=== PATIENT | male | born 1970 | race African-American/Black ===

== ENCOUNTER 2016-04-15 19:15 | Inpatient (IN) | payer OTHER, MEDICAID ==
[~2016-04-15] VITALS: Ht 190.5 cm; Wt 92.5 kg
[2016-04-15 19:15] VITALS: O2SAT 97
[~2016-04-15 19:15] MED LIST: CARB200 PO; CARB200T16 PO; CITA20 PO; CITA40 PO; FENO1TAB76 PO; HALO10 PO; HALO5 PO; HYDRO25 PO; OMEP20TA39 PO; QUET200 PO; SERO200T2 PO; TRIH5 PO; VIST25CA PO
[2016-04-15] MEDS ORDERED: ONDANSETRON HCL 4 MG/2 ML VIAL ONE (19:29)
[2016-04-15] MEDS ORDERED: ceFAZolin 2 GM PREMIX 50 ML ONE (19:29)
[2016-04-15] MEDS ORDERED: DIPHTH/TETANUS/ACEL PERTUSSIS (BOOSTER) 0.5 ML VIAL/PFS IM ONE (19:47)
[2016-04-15] MEDS ORDERED: ceFAZolin 2 GM PREMIX 50 ML IV STA (19:47)
[2016-04-15 19:53] LABS: I-STAT POTASSIUM 3.6 MMOL/L (3.5-4.9)
[2016-04-15 19:54] LABS: BASOPHIL # 0.1 TH/MM3 (0-0.2); EOSINOPHIL # 0.3 TH/MM3 (0-0.4); HEMATOCRIT 42.4 % (39.0-51.0); HEMO FLAGS DIFF FINAL; LYMPH % 51.5 % (9.0-44.0); LYMPHOCYTE # 2.9 TH/MM3 (1.0-4.8); MEAN CELL VOLUME 85.7 FL (80.0-100.0); MONO % 6.7 % (0.0-8.0); NEUT % 35.8 % (16.0-70.0); PLATELET COUNT 170 TH/MM3 (150-450); RED BLOOD COUNT 4.95 MIL/MM3 (4.50-5.90); RED CELL DISTRIBUTION WIDTH 13.6 % (11.6-17.2); WHITE BLOOD COUNT 5.6 TH/MM3 (4.0-11.0)
[2016-04-15] MEDS ORDERED: SODIUM CHLOR 0.9% 1000 ML INJ 1,000 ML IV ONE (20:00)
[2016-04-15 20:05] LABS: PROTHROMBIN TIME - PATIENT 10.8 SEC (9.8-11.6)
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
[2016-04-15 20:10] VITALS: BP 128/62; PULSE 96; RESP 20; TEMP 97.5; O2SAT 96
[2016-04-15] MEDS ORDERED: IOHEXOL 350 MG/ML 10 ML VIAL (for RAD DIAG) IV ONE (20:10)
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
[2016-04-15 20:48] VITALS: BP 141/92; PULSE 72; RESP 18; O2SAT 96
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
[2016-04-15 22:00] VITALS: BP 131/79; PULSE 75; RESP 18; O2SAT 96
[2016-04-15 23:00] VITALS: BP 119/72; PULSE 78; RESP 18; O2SAT 100
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
[2016-04-15] MEDS ORDERED: ONDANSETRON HCL 4 MG/2 ML VIAL IV PRN (23:45)
[2016-04-15] MEDS ORDERED: ACETAMINOPHEN/HYDROcodone 325 MG/5 MG TAB PO PRN (23:45)
[2016-04-15] MEDS ORDERED: MAGNESIUM HYDROXIDE SUSP 30 ML CUP PO PRN (23:45)
[2016-04-15] MEDS ORDERED: CHLORHEXIDINE GLUCONATE 2 % 1 PACK (2 CLOTHS) TOP PRN (23:45)
[2016-04-15] MEDS ORDERED: SODIUM CHLORIDE 0.9% FLUSH 5 ML FLUSH IVF PRN (23:45)
[2016-04-15] MEDS ORDERED: MISCELLANEOUS NURSING INFORMATION XX SCH (23:45)
[2016-04-16] VITALS: BP 119/70; PULSE 77; RESP 18; O2SAT 100
[2016-04-16 01:00] VITALS: BP 119/70; PULSE 80; RESP 18; O2SAT 95
[2016-04-16] MEDS: LACTATED RINGER'S 1000 ML INJ 1,000 ML IV SCH ×2 (02:00→13:14)
[2016-04-16 02:04] VITALS: BP 117/67; PULSE 80; RESP 18; O2SAT 96
[2016-04-16 03:00] VITALS: BP 140/83; PULSE 81; RESP 20; TEMP 96.5; O2SAT 96
[2016-04-16] MEDS ORDERED: CHLORHEXIDINE GLUCONATE 2 % 1 PACK (2 CLOTHS) TOP SCH (04:00)
[2016-04-16] MEDS ORDERED: MILKSUS PO (07:06)
[2016-04-16] MEDS ORDERED: DOCU1CAP39 PO (07:06)
[2016-04-16 08:03] LABS: AUTOMATED NEUTROPHIL # 5.7 TH/MM3 (1.8-7.7); BASOPHIL % 0.6 % (0.0-2.0); EOSINOPHIL # 0.2 TH/MM3 (0-0.4); EOSINOPHIL % 2.4 % (0.0-4.0); HEMATOCRIT 44.1 % (39.0-51.0); HEMO FLAGS DIFF FINAL; LYMPHOCYTE # 1.3 TH/MM3 (1.0-4.8); MEAN CELL VOLUME 86.7 FL (80.0-100.0); MEAN CORPUSCULAR HEMOGLOBIN 29.7 PG (27.0-34.0); MEAN CORPUSCULAR HGB CONC 34.3 % (32.0-36.0); MONO % 7.8 % (0.0-8.0); NEUT % 73.2 % (16.0-70.0); PLATELET COUNT 194 TH/MM3 (150-450); RED BLOOD COUNT 5.09 MIL/MM3 (4.50-5.90); RED CELL DISTRIBUTION WIDTH 13.5 % (11.6-17.2); WHITE BLOOD COUNT 7.8 TH/MM3 (4.0-11.0)
[2016-04-16] MEDS: ACETAMINOPHEN/HYDROcodone 325 MG/5 MG TAB PO PRN ×2 (08:19→13:13)
[2016-04-16 08:31] LABS: BICARBONATE 26.6 MEQ/L (21.0-32.0); POTASSIUM 3.8 MEQ/L (3.5-5.1)
[2016-04-16 08:40] VITALS: BP 133/75; PULSE 88; RESP 20; TEMP 98.1; O2SAT 95
[2016-04-16] MEDS ORDERED: DOCUSATE SODIUM 100 MG CAP PO SCH (09:00)
[2016-04-16] MEDS ORDERED: MULTIVITAMIN TAB PO SCH (09:00)
[2016-04-16] MEDS ORDERED: FOLIC ACID 1 MG TAB PO SCH (09:00)
[2016-04-16] MEDS ORDERED: THIAMINE HCL 100 MG TAB PO SCH (09:00)
[2016-04-16 12:00] VITALS: BP 123/76; PULSE 99; RESP 21; TEMP 98.8; O2SAT 99
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
[2016-04-16] MEDS ORDERED: NORC5TAB PO (14:51)
== END 2016-04-16 16:26 | disposition home or self-care (01) | DRG 87 ==
LOC: NEPI 19:15 → EDBD 19:43 → NEDA 19:43 → MERGE 19:43 → N05B 04-16 02:50
PROVIDERS: ADMIT Surgery; ATTEND Surgery
DX: S02.0XXA Fracture of vault of skull, initial encounter for closed fracture (principal); F32.9 Major depressive disorder, single episode, unspecified; F14.129 Cocaine abuse with intoxication, unspecified; S06.0X9A Concussion with loss of consciousness of unspecified duration, initial encounter; S90.511A Abrasion, right ankle, initial encounter; S40.211A Abrasion of right shoulder, initial encounter; G40.909 Epilepsy, unspecified, not intractable, without status epilepticus; R40.2411 Glasgow coma scale score 13-15, in the field [EMT or ambulance]; F10.129 Alcohol abuse with intoxication, unspecified; Y90.6 Blood alcohol level of 120-199 mg/100 ml; F17.210 Nicotine dependence, cigarettes, uncomplicated; M54.2 Cervicalgia; M54.5 Low back pain; R10.2 Pelvic and perineal pain; V09.20XA Pedestrian injured in traffic accident involving unspecified motor vehicles, initial encounter
CPT/HCPCS: 70450; 70486; 71010; 71260; 72125; 72170; 73120; 73610; 74177; 80048; 80320; 82435; 82565; 82947; 84132; 84295; 84520; 85025; 85610; 85730; 86850; 86900; 86901; 90471; 90715; 94150; 96374; 99291; G0390; J0690; J2405; J7030; J7120; Q9967

== ENCOUNTER 2016-07-11 18:32 | Inpatient (IN) | payer MEDICAID, OTHER ==
[~2016-07-11] VITALS: Ht 190.5 cm; Wt 95.3 kg
[~2016-07-11 18:32] MED LIST changes: +DOCU1CAP39 PO; +MILKSUS PO; +NORC5TAB PO
[2016-07-11 19:18] VITALS: BP 112/68; PULSE 97; RESP 16; TEMP 98.5; O2SAT 100
[2016-07-11 19:45] VITALS: BP 108/70; PULSE 88; RESP 17; O2SAT 100
[2016-07-11 20:01] VITALS: BP 108/70; PULSE 88; RESP 17; O2SAT 100
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
[2016-07-11 20:43] LABS: AUTOMATED NEUTROPHIL # 2.2 TH/MM3 (1.8-7.7); BASOPHIL % 0.8 % (0.0-2.0); EOSINOPHIL # 0.3 TH/MM3 (0-0.4); EOSINOPHIL % 5.8 % (0.0-4.0); HEMATOCRIT 43.4 % (39.0-51.0); HEMO FLAGS DIFF FINAL; LYMPH % 47.5 % (9.0-44.0); LYMPHOCYTE # 2.7 TH/MM3 (1.0-4.8); MEAN CELL VOLUME 86.2 FL (80.0-100.0); MEAN CORPUSCULAR HEMOGLOBIN 29.3 PG (27.0-34.0); MONO % 6.1 % (0.0-8.0); NEUT % 39.8 % (16.0-70.0); PLATELET COUNT 196 TH/MM3 (150-450); RED BLOOD COUNT 5.04 MIL/MM3 (4.50-5.90); RED CELL DISTRIBUTION WIDTH 13.1 % (11.6-17.2); WHITE BLOOD COUNT 5.6 TH/MM3 (4.0-11.0)
[2016-07-11 21:22] LABS: ACETAMINOPHEN LESS THAN 2.0 MCG/ML (10.0-30.0); ALKALINE PHOSPHATASE 74 U/L (45-117); ALT (GPT) 27 U/L (12-78); ANION GAP 10 MEQ/L (5-15); AST (GOT) 24 U/L (15-37); BICARBONATE 24.1 MEQ/L (21.0-32.0); BLOOD UREA NITROGEN 13 MG/DL (7-18); CHLORIDE 106 MEQ/L (98-107); GLOMERULAR FILTRATION RATE 78 ML/MIN (>89); POTASSIUM 3.6 MEQ/L (3.5-5.1); SODIUM (NA) 140 MEQ/L (136-145); TOTAL BILIRUBIN ADULT 0.3 MG/DL (0.2-1.0)
[2016-07-11 22:00] VITALS: BP 140/68; PULSE 82; RESP 18; O2SAT 99
[2016-07-12 00:03] LABS: AMPHETAMINE, URINE NEG (NEG); BARBITURATES, URINE NEG (NEG); COCAINE, URINE POS (NEG)
[2016-07-12 02:04] VITALS: BP 125/63; PULSE 65; RESP 19; O2SAT 95
[2016-07-12 06:00] VITALS: BP 114/60; PULSE 71; RESP 18; O2SAT 99
[2016-07-12 10:48] VITALS: BP 109/68; PULSE 80; RESP 17; O2SAT 96
[2016-07-12 12:31] VITALS: BP 114/60; PULSE 71; RESP 18; TEMP 97.9; O2SAT 98
[2016-07-12] MEDS: HALOPERIDOL 5 MG TAB PO SCH ×2 (13:30→21:03)
[2016-07-12] MEDS: TRIHEXYPHENIDYL HCL 5 MG TAB PO SCH ×2 (14:00→21:03)
[2016-07-12] MEDS: PANTOPRAZOLE SOD 40 MG DELAYED RELEASE TAB PO SCH (14:00)
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
[2016-07-12] MEDS ORDERED: ACETAMINOPHEN 325 MG TAB PO PRN (15:00)
[2016-07-12] MEDS ORDERED: MAGNESIUM HYDROXIDE SUSP 30 ML CUP PO PRN (15:00)
[2016-07-12] MEDS: CITALOPRAM HYDROBROMIDE 40 MG TAB PO SCH (15:00)
[2016-07-12] MEDS: FENOFIBRATE 48 MG TAB PO SCH (15:00)
[2016-07-12] MEDS ORDERED: ALUMINUM/MAGNESIUM/SIMETH 30 ML CUP PO PRN (15:00)
[2016-07-12 15:34] VITALS: BP 114/67; TEMP 98
[2016-07-12 17:28] VITALS: BP 99/74; PULSE 79; RESP 18; TEMP 97.8; O2SAT 100
[2016-07-13 06:37] VITALS: BP 116/67; PULSE 66; RESP 18; TEMP 97.9; O2SAT 100
[2016-07-13] MEDS: CITALOPRAM HYDROBROMIDE 40 MG TAB PO SCH (09:00)
[2016-07-13] MEDS: HALOPERIDOL 5 MG TAB PO SCH (09:00)
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
[2016-07-13] MEDS: TRIHEXYPHENIDYL HCL 5 MG TAB PO SCH ×2 (09:12→21:05)
[2016-07-13] MEDS: PANTOPRAZOLE SOD 40 MG DELAYED RELEASE TAB PO SCH (09:12)
[2016-07-13] MEDS: FENOFIBRATE 48 MG TAB PO SCH (09:12)
[2016-07-13] MEDS ORDERED: PILL SPLITTER OTHER PRN (09:30)
[2016-07-13] MEDS ORDERED: ALBUTEROL SULFATE 90 MCG/ACT HFA 18 GM INHALER INH PRN (10:00)
[2016-07-13 10:15] LABS: ANION GAP 8 MEQ/L (5-15); BICARBONATE 24.1 MEQ/L (21.0-32.0); BLOOD UREA NITROGEN 13 MG/DL (7-18); CHLORIDE 106 MEQ/L (98-107); GLOMERULAR FILTRATION RATE 79 ML/MIN (>89); HDL CHOLESTEROL 46.7 MG/DL (40.0-60.0); LDL CHOLESTEROL 139 MG/DL (0-99); POTASSIUM 3.7 MEQ/L (3.5-5.1); SODIUM (NA) 138 MEQ/L (136-145)
[2016-07-13] MEDS ORDERED: LORazepam 2 MG TAB PO PRN (10:15)
[2016-07-13] MEDS ORDERED: LORazepam 1 MG TAB PO PRN (10:15)
[2016-07-13] MEDS ORDERED: LORazepam 2 MG/ML VIAL IV PUSH PRN ×4 (10:15)
[2016-07-13] MEDS ORDERED: BENZTROPINE MESYLATE 2 MG/2 ML VIAL IM PRN (11:00)
[2016-07-13] MEDS ORDERED: FLUMAZENIL 0.5 MG/5 ML VIAL IV PUSH PRN (11:00)
[2016-07-13] MEDS ORDERED: BENZTROPINE MESYLATE 1 MG TAB PO PRN (11:00)
[2016-07-13 12:09] LABS: HEMOGLOBIN A1b 1.4 %; HEMOGLOBIN Ao 86.6 %; HEMOGLOBIN P3 3.3 %
[2016-07-13] MEDS: QUEtiapine FUMARATE 100 MG TAB PO SCH (12:13)
[2016-07-13 18:13] VITALS: BP 133/65; PULSE 92; RESP 18; TEMP 98.1; O2SAT 97
[2016-07-13] MEDS: carBAMazepine 200 MG TAB PO SCH (21:00)
[2016-07-13] MEDS: QUEtiapine FUMARATE 200 MG TAB PO SCH (21:05)
[2016-07-14 06:03] VITALS: BP 113/72; PULSE 98; RESP 18; TEMP 97.8; O2SAT 98
[2016-07-14] MEDS: QUEtiapine FUMARATE 200 MG TAB PO SCH ×2 (08:00→22:03)
[2016-07-14] MEDS: carBAMazepine 200 MG TAB PO SCH ×2 (08:00→22:03)
[2016-07-14] MEDS: THIAMINE HCL 100 MG TAB PO SCH (08:00)
[2016-07-14] MEDS: FOLIC ACID 1 MG TAB PO SCH (08:00)
[2016-07-14] MEDS: TRIHEXYPHENIDYL HCL 5 MG TAB PO SCH ×2 (08:01→22:02)
[2016-07-14] MEDS: PANTOPRAZOLE SOD 40 MG DELAYED RELEASE TAB PO SCH (08:02)
[2016-07-14] MEDS: FENOFIBRATE 48 MG TAB PO SCH (08:02)
[2016-07-14] MEDS: QUEtiapine FUMARATE 100 MG TAB PO SCH (11:52)
--- NOTE | 2016-07-14 14:28 | HHI.PYPN ---
Subjective Remarks Patient was seen and case discussed with nursing. Patient is behaving well on the unit. Endorses suicidal ideation before admission but denies it today. Says that he was upset because he did not like the surroundings and is placement. Is alert and oriented 3. Compliant with his medications. Denies psychotic symptoms. Behaving well per nursing Objective Alert: Yes [place]: Person (ox4), Place, Date Mood: Depressed Affect: Blunted Memory Intact: Comment (not impaired) Hallucinations: Auditory (denies today) Delusions: No Delusion Type: Other (none elicited) Suicidal: Ideation (denies today) Homicidal: Ideation (no specific plan) Insight/Judgment Poor Vitals/IOs Vital Signs Date Time Temp Pulse Resp B/P Pulse Ox O2 Delivery O2 Flow Rate FiO2 07/14/16 06:03 97.8 98 18 113/72 98 07/12/16 06:00 Room Air Assessment & Plan Problem List: (1) Schizoaffective disorder ICD Code: F25.9 (2) Cocaine abuse ICD Code: F14.10 Assessment & Plan Continue current treatment plan Justification for Cont. Inpt. Patient will decompensate in a less restrictive setting Request HC Surrog/Guard Advoc?: No Problem Qualifiers (1) Schizoaffective disorder: Qualified Code: F25.0 - Schizoaffective disorder, bipolar type Jona Lyn DO July 14, 2016 14:28
[2016-07-14 14:53] VITALS: BP 104/63; PULSE 91; RESP 19; TEMP 98.2; O2SAT 100
[2016-07-14] MEDS: hydrOXYzine HCL 50 MG TAB PO PRN (18:26)
[2016-07-14] MEDS: diphenhydrAMINE HCL 50 MG CAP PO PRN (22:02)
[2016-07-15 05:50] VITALS: BP 117/74; PULSE 94; RESP 16; TEMP 98.1; O2SAT 97
[2016-07-15] MEDS: TRIHEXYPHENIDYL HCL 5 MG TAB PO SCH ×2 (08:00→20:38)
[2016-07-15] MEDS: THIAMINE HCL 100 MG TAB PO SCH (08:00)
[2016-07-15] MEDS: FOLIC ACID 1 MG TAB PO SCH (08:00)
[2016-07-15] MEDS: QUEtiapine FUMARATE 200 MG TAB PO SCH ×2 (08:01→20:38)
[2016-07-15] MEDS: carBAMazepine 200 MG TAB PO SCH ×2 (08:01→20:38)
[2016-07-15] MEDS: PANTOPRAZOLE SOD 40 MG DELAYED RELEASE TAB PO SCH (08:48)
[2016-07-15] MEDS: FENOFIBRATE 48 MG TAB PO SCH (09:00)
--- NOTE | 2016-07-15 11:51 | HHI.PYPN ---
Subjective Remarks Patient was seen and case discussed with nursing. Patient is more engageable and has a brighter affect. His complaints of hallucinations and suicidal ideation are very vague and superficial. His compliant with his medications and behaving well on the unit. Objective Alert: Yes [place]: Person (ox4), Place, Date Mood: Calm Affect: Restricted Memory Intact: Comment (not impaired) Hallucinations: Auditory (of crowds) Delusions: No Delusion Type: Other (none elicited) Suicidal: Ideation ("here and there.") Homicidal: Ideation (no specific plan) Insight/Judgment Poor Vitals/IOs Vital Signs Date Time Temp Pulse Resp B/P Pulse Ox O2 Delivery O2 Flow Rate FiO2 07/15/16 05:50 98.1 94 16 117/74 97 07/12/16 06:00 Room Air Assessment & Plan Problem List: (1) Schizoaffective disorder ICD Code: F25.9 (2) Cocaine abuse ICD Code: F14.10 Assessment & Plan Continue current treatment plan Justification for Cont. Inpt. Patient will decompensate in a less restrictive setting Request HC Surrog/Guard Advoc?: No Problem Qualifiers (1) Schizoaffective disorder: Qualified Code: F25.0 - Schizoaffective disorder, bipolar type Jona Lyn DO July 15, 2016 11:51
[2016-07-15] MEDS: QUEtiapine FUMARATE 100 MG TAB PO SCH (12:00)
[2016-07-15 18:15] VITALS: BP 129/57; PULSE 89; RESP 18; TEMP 98.6; O2SAT 95
[2016-07-16 06:10] VITALS: BP 124/59; PULSE 88; RESP 16; TEMP 97.1; O2SAT 98
[2016-07-16] MEDS: QUEtiapine FUMARATE 200 MG TAB PO SCH (08:47)
[2016-07-16] MEDS: FOLIC ACID 1 MG TAB PO SCH (08:47)
[2016-07-16] MEDS: THIAMINE HCL 100 MG TAB PO SCH (08:48)
[2016-07-16] MEDS: PANTOPRAZOLE SOD 40 MG DELAYED RELEASE TAB PO SCH (08:48)
[2016-07-16] MEDS: carBAMazepine 200 MG TAB PO SCH ×2 (08:48→22:13)
[2016-07-16] MEDS: TRIHEXYPHENIDYL HCL 5 MG TAB PO SCH ×2 (08:48→22:13)
[2016-07-16] MEDS: FENOFIBRATE 48 MG TAB PO SCH (08:53)
--- NOTE | 2016-07-16 10:24 | HHI.PYPN ---
Subjective Remarks Patient seen and examined with counselor and nurse. Chart reviewed. Case discussed with nursing staff who reports patient still complains of low mood and suicidal ideation "off and on." He has been no behavioral problem per nursing staff. On my examination today, the patient continues to endorse depressive symptoms feeling like "I can't make it in life." He endorses feeling useless. He does admit to some intermittent suicidal ideation still. He feels like his current psychotropic medication regimen is helping but he finds it somewhat overly sedating during the day. We discuss adjusting his Seroquel dosing to place the bulk of the dose at night. He denies side effects from medications otherwise. He remains receptive to independent living placement such as at [facility]. Review of Systems Except as stated in HPI: all other systems reviewed are Neg Objective Alert: Yes [place]: Person, Place, Date Mood: Depressed Affect: Blunted Memory Intact: Comment (intact) Hallucinations: Other (no AVH) Delusions: No Delusion Type: Other (no delusions) Suicidal: Ideation (intermittent) Homicidal: Ideation (no homicidal ideation) Insight/Judgment Fair Remarks No motor abnormalities. Thought processes linear. Grooming and hygiene good. Labs Test 07/16/16 07:31 Carbamazepine (Tegretol) Level 6.4 MCG/ML Labs reviewed. Tegretol level within the therapeutic range. Vitals/IOs Vital Signs Date Time Temp Pulse Resp B/P Pulse Ox O2 Delivery O2 Flow Rate FiO2 07/16/16 06:10 97.1 88 16 124/59 98 Assessment & Plan Problem List: (1) Schizoaffective disorder ICD Code: F25.9 (2) Cocaine abuse ICD Code: F14.10 Assessment & Plan Adjust Seroquel dosing to 200/100/600mg to lessen daytime sedation. Titrate CBZ to 200mg BID for additional mood stabilization. Plan to check a level later this week. Continue to monitor on inpatient unit. Continue other medications and care as ordered. Justification for Cont. Inpt. Monitoring for impairment in safety. Medication changes in process. High risk for decompensation in a less restrictive environment pending psychiatric stabilization. Discharge Planning Pending psychiatric stabilization. Possible discharge to [facility] later this week. Request HC Surrog/Guard Advoc?: No Problem Qualifiers (1) Schizoaffective disorder: Qualified Code: F25.0 - Schizoaffective disorder, bipolar type Stephan Dewitt MD July 16, 2016 10:24
[2016-07-16] MEDS: hydrOXYzine HCL 50 MG TAB PO PRN (10:55)
[2016-07-16] MEDS: QUEtiapine FUMARATE 100 MG TAB PO SCH (12:43)
[2016-07-16 17:45] VITALS: BP 133/56; PULSE 88; RESP 16; TEMP 98.1; O2SAT 99
[2016-07-16] MEDS: QUEtiapine FUMARATE 300 MG TAB PO SCH (22:13)
[2016-07-16] MEDS: diphenhydrAMINE HCL 50 MG CAP PO PRN (22:14)
[2016-07-17 05:56] VITALS: BP 118/70; PULSE 107; RESP 18; TEMP 97.9; O2SAT 97
[2016-07-17] MEDS: THIAMINE HCL 100 MG TAB PO SCH (09:40)
[2016-07-17] MEDS: carBAMazepine 200 MG TAB PO SCH ×2 (09:40→21:03)
[2016-07-17] MEDS: FENOFIBRATE 48 MG TAB PO SCH (09:40)
[2016-07-17] MEDS: FOLIC ACID 1 MG TAB PO SCH (09:40)
[2016-07-17] MEDS: TRIHEXYPHENIDYL HCL 5 MG TAB PO SCH ×2 (09:40→21:03)
[2016-07-17] MEDS: QUEtiapine FUMARATE 200 MG TAB PO SCH (09:40)
[2016-07-17] MEDS: PANTOPRAZOLE SOD 40 MG DELAYED RELEASE TAB PO SCH (09:40)
--- NOTE | 2016-07-17 09:59 | HHI.PYPN ---
Subjective Remarks Patient seen and examined with counselor and nurse. Chart reviewed. Case discussed with nurse, counselor and rec therapist in treatment team. Per nurse , patient has been no behavioral problem; he is noted to be somewhat seclusive to room. For me today, patient says he is feeling "down and depressed." No SI. Complains of somewhat of AH of a "crowd," no specific voices. Not interested in an [facility] "because they take all your money." He does perk up when he learns that representatives from [facility] will be out to see him today. No side effects from meds. Review of Systems Except as stated in HPI: all other systems reviewed are Neg Objective Alert: Yes [place]: Person, Place, Date Mood: Depressed Affect: Blunted Memory Intact: Comment (Remains intact) Hallucinations: Other (no AVH) Delusions: No Delusion Type: Other (No delusions) Suicidal: Ideation (No SI) Homicidal: Ideation (No HI) Insight/Judgment Fair Remarks No abnormal motor movements noted. TP linear. Speech wnl for rate, tone, volume. Grooming and hygiene fair. Labs Labs reviewed. Vitals/IOs Vital Signs Date Time Temp Pulse Resp B/P Pulse Ox O2 Delivery O2 Flow Rate FiO2 07/17/16 05:56 97.9 107 18 118/70 97 Assessment & Plan Problem List: (1) Schizoaffective disorder ICD Code: F25.9 (2) Cocaine abuse ICD Code: F14.10 Assessment & Plan Continue Seroquel and CBZ as ordered. Plan to check a Tegretol level later this week. Continue to monitor on the inpatient unit. Continue other medications and care as ordered. Justification for Cont. Inpt. High risk for decompensation in less restrictive environment. Discharge planning. Discharge Planning [facility] to evaluate pt today. Request HC Surrog/Guard Advoc?: No Problem Qualifiers (1) Schizoaffective disorder: Qualified Code: F25.0 - Schizoaffective disorder, bipolar type Stephan Dewitt MD July 17, 2016 09:59
[2016-07-17] MEDS: QUEtiapine FUMARATE 100 MG TAB PO SCH (12:19)
[2016-07-17 18:35] VITALS: BP 130/65; PULSE 111; RESP 18; TEMP 98.4; O2SAT 98
[2016-07-17] MEDS: QUEtiapine FUMARATE 300 MG TAB PO SCH (21:03)
[2016-07-18] MEDS: hydrOXYzine HCL 50 MG TAB PO PRN (05:28)
[2016-07-18 06:12] VITALS: BP 123/61; PULSE 100; RESP 16; TEMP 97.8; O2SAT 97
[2016-07-18] MEDS: QUEtiapine FUMARATE 200 MG TAB PO SCH (09:00)
[2016-07-18] MEDS: carBAMazepine 200 MG TAB PO SCH (09:02)
[2016-07-18] MEDS: FOLIC ACID 1 MG TAB PO SCH (09:02)
[2016-07-18] MEDS: FENOFIBRATE 48 MG TAB PO SCH (09:02)
[2016-07-18] MEDS: THIAMINE HCL 100 MG TAB PO SCH (09:02)
[2016-07-18] MEDS: TRIHEXYPHENIDYL HCL 5 MG TAB PO SCH (09:03)
[2016-07-18] MEDS: PANTOPRAZOLE SOD 40 MG DELAYED RELEASE TAB PO SCH (09:03)
[2016-07-18] MEDS: QUEtiapine FUMARATE 100 MG TAB PO SCH (12:16)
--- NOTE | 2016-07-18 14:02 | HHI.PYPN ---
Objective Alert: Yes [place]: Person, Place, Date Mood: Depressed Affect: Blunted Memory Intact: Comment (Remains intact) Hallucinations: Other (no AVH) Delusions: No Delusion Type: Other (No delusions) Suicidal: Ideation (No SI) Homicidal: Ideation (No HI) Vitals/IOs Vital Signs Date Time Temp Pulse Resp B/P Pulse Ox O2 Delivery O2 Flow Rate FiO2 07/18/16 06:12 97.8 100 16 123/61 97 Assessment & Plan Problem List: (1) Schizoaffective disorder ICD Code: F25.9 (2) Cocaine abuse ICD Code: F14.10 Assessment & Plan Estimated LOS: days Request HC Surrog/Guard Advoc?: No Problem Qualifiers (1) Schizoaffective disorder: Qualified Code: F25.0 - Schizoaffective disorder, bipolar type Stephan Dewitt MD July 18, 2016 14:02
[2016-07-18] MEDS ORDERED: CARB200T PO (14:43)
[2016-07-18] MEDS ORDERED: QUET1TAB8 PO (14:43)
[2016-07-18] MEDS ORDERED: TRIH5TAB2 PO (14:43)
[2016-07-18] MEDS ORDERED: QUET1TAB10 PO (14:43)
[2016-07-18] MEDS ORDERED: QUET1TAB9 PO (14:43)
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
== END 2016-07-18 19:00 | disposition home or self-care (01) | DRG 885 ==
LOC: NEPJ 18:32 → NEDA 07-12 14:39 → H270 07-12 15:32
PROVIDERS: ADMIT Psychiatry & Neurology Psychiatry; ATTEND Psychiatry & Neurology Psychiatry
DX: F25.9 Schizoaffective disorder, unspecified (principal); F14.10 Cocaine abuse, uncomplicated; Z81.8 Family history of other mental and behavioral disorders; F17.210 Nicotine dependence, cigarettes, uncomplicated; Z88.0 Allergy status to penicillin
CPT/HCPCS: 80048; 80053; 80061; 80156; 80307; 83036; 85025; 99284; Q0163

== ENCOUNTER 2016-07-27 19:50 | Emergency (ER) | payer MEDICAID, OTHER ==
[~2016-07-27] VITALS: Ht 190.5 cm; Wt 92.0 kg
[~2016-07-27 19:50] MED LIST changes: -CARB200 PO; +CARB200T PO; -CARB200T16 PO; -CITA20 PO; -CITA40 PO; -DOCU1CAP39 PO; -HALO10 PO; -HALO5 PO; -HYDRO25 PO; -MILKSUS PO; -NORC5TAB PO; +QUET1TAB10 PO; +QUET1TAB8 PO; +QUET1TAB9 PO; -QUET200 PO; -SERO200T2 PO; -TRIH5 PO; +TRIH5TAB2 PO; -VIST25CA PO
[2016-07-27 20:01] VITALS: BP 168/82; PULSE 89; RESP 14; TEMP 98.1; O2SAT 99
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
[2016-07-27 20:35] LABS: AUTOMATED NEUTROPHIL # 3.9 TH/MM3 (1.8-7.7); BASOPHIL % 0.7 % (0.0-2.0); EOSINOPHIL # 0.2 TH/MM3 (0-0.4); EOSINOPHIL % 2.6 % (0.0-4.0); HEMATOCRIT 44.5 % (39.0-51.0); HEMO FLAGS DIFF FINAL; LYMPHOCYTE # 2.1 TH/MM3 (1.0-4.8); MEAN CELL VOLUME 86.2 FL (80.0-100.0); MEAN CORPUSCULAR HEMOGLOBIN 29.4 PG (27.0-34.0); MEAN CORPUSCULAR HGB CONC 34.2 % (32.0-36.0); MONO % 7.4 % (0.0-8.0); NEUT % 58.3 % (16.0-70.0); PLATELET COUNT 201 TH/MM3 (150-450); RED BLOOD COUNT 5.16 MIL/MM3 (4.50-5.90); WHITE BLOOD COUNT 6.6 TH/MM3 (4.0-11.0)
[2016-07-27 20:44] LABS: AMPHETAMINE, URINE NEG (NEG); BARBITURATES, URINE NEG (NEG); COCAINE, URINE POS (NEG)
[2016-07-27 21:03] LABS: ANION GAP 13 MEQ/L (5-15)
[2016-07-27 21:06] LABS: ALKALINE PHOSPHATASE 66 U/L (45-117); ALT (GPT) 30 U/L (12-78); AST (GOT) 19 U/L (15-37); BICARBONATE 22.1 MEQ/L (21.0-32.0); BLOOD UREA NITROGEN 14 MG/DL (7-18); CHLORIDE 105 MEQ/L (98-107); GLOMERULAR FILTRATION RATE 73 ML/MIN (>89); POTASSIUM 3.5 MEQ/L (3.5-5.1); SODIUM (NA) 140 MEQ/L (136-145); TOTAL BILIRUBIN ADULT 0.6 MG/DL (0.2-1.0)
[2016-07-27] MEDS ORDERED: TEGR200T PO (21:59)
[2016-07-27 22:10] VITALS: BP 122/66; PULSE 88; RESP 18; TEMP 97.6; O2SAT 97
[2016-07-27 22:56] VITALS: BP 112/57; PULSE 92; RESP 18; O2SAT 99
[2016-07-28 02:25] VITALS: BP 117/57; PULSE 60; RESP 18; O2SAT 97
[2016-07-28 06:09] VITALS: BP 114/69; PULSE 67; RESP 18; O2SAT 99
== END 2016-07-28 10:46 ==
LOC: NEDAMB 19:50 → NEPJ 07-28 10:46
DX: F25.9 Schizoaffective disorder, unspecified (principal); F14.10 Cocaine abuse, uncomplicated; R44.0 Auditory hallucinations; R44.1 Visual hallucinations; J45.909 Unspecified asthma, uncomplicated; Z72.0 Tobacco use
CPT/HCPCS: 80053; 80156; 80307; 85025; 99285

== ENCOUNTER 2017-09-13 06:42 | Inpatient (IN) ==
--- NOTE | 2017-09-13 07:17 | ED ---
HPI General Chief complaint: Psychiatric Symptoms Stated complaint: Medical Time Seen by Provider: 09/13/17 07:03 Source: patient Mode of arrival: ambulatory Limitations: no limitations History of Present Illness HPI narrative: 46-year-old male presents to the emergency department for psychiatric evaluation. Patient is voluntary at this time. Patient states he has been feeling suicidal homicidal since yesterday. Patient reports history of schizoaffective disorder and bipolar disorder, but has been off his medications for a couple of weeks. Patient states "I have a lot going on". He is tearful on my exam. The patient denies any attempt at this time to hurt himself. When asked if he has a plan, he states "anything". Patient denies any particular person in which he is feeling homicidal towards. He does state that he drank a beer recently, but does not typically drink alcohol. He does smoke tobacco and denies any illicit drug use. Moderate severity. Onset (ago): day(s) (1) Severity: moderate Relieving factors: medication Exacerbating factors: none Associated symptoms: denies other symptoms Treatments prior to arrival: none Related Data Home Medications Medication Instructions Recorded Confirmed No Known Home Medications 09/13/17 09/13/17 Allergies Allergy/AdvReac Type Severity Reaction Status Date / Time levetiracetam Allergy Intermediate Nausea/Vomi Verified 09/13/17 07:31 ting penicillin G Allergy Mild SWELLING,IT Verified 09/13/17 07:31 ARLETH Review of Systems ROS Unobtainable All other systems reviewed negative except as stated in HPI PMFSH Social History Social History Substance History: No History of Abuse Second Hand Smoke Exposure: No Smoking Status: Current every day smoker Packs Per Day: 0.5 Cigarettes Per Day: 10.0 How Often Do You Have a Drink Containing Alcohol: Monthly or less Recent Travel in [facility] within the Last 8 Weeks: No Recent Out of Country Travel within the Last 8 Weeks: No Exam Narrative Exam Narrative: GENERAL: Well-nourished, well-developed male patient, afebrile SKIN: Focused skin assessment warm/dry. HEAD: Normocephalic. Atraumatic EYES: No scleral icterus. No injection or drainage. NECK: Supple, trachea midline. No JVD or lymphadenopathy. CARDIOVASCULAR: Regular rate and rhythm without murmurs, gallops, or rubs. RESPIRATORY: Breath sounds equal bilaterally. No accessory muscle use. Lung sounds are clear to auscultation GASTROINTESTINAL: Abdomen soft, non-tender, nondistended. MUSCULOSKELETAL: No cyanosis, or edema. BACK: No obvious deformity. PSYCHIATRIC: No delusional thought processes. No hallucinations. Patient is tearful Course Initial Documented Vital Signs Temperature 97.8 F 09/13/17 06:44 Pulse Rate 81 09/13/17 06:44 Respiratory Rate 16 09/13/17 06:44 Blood Pressure 109/58 L 09/13/17 06:44 Pulse Oximetry 100 09/13/17 06:44 Last Documented Vital Signs Temperature 97.8 F 09/13/17 06:44 Pulse Rate 81 09/13/17 06:44 Respiratory Rate 16 09/13/17 06:44 Blood Pressure 109/58 L 09/13/17 06:44 Pulse Oximetry 100 09/13/17 06:44 Medical Decision Making WIL Attestation WIL supervised visit: No MDM Narrative Medical decision making narrative: 46-year-old male presents to the emergency department voluntarily for psychiatric evaluation. CBC, CMP, TSH, urine drug screen, alcohol level are ordered and pending. CBC shows slightly decreased neutrophils of 1.6, patient should have this rechecked by his primary care physician. CMP shows hypokalemia of 3.3. TSH is 1.050. UDS is pending. Alcohol level is 174. Patient is medically cleared for psychiatric screening and disposition. Differential Diagnosis Differential Diagnosis: Schizoaffective disorder versus bipolar disorder versus depression versus anxiety versus suicidal ideation Medical Records Medical records reviewed: Yes I reviewed the patient's medical records. Lab Data Result diagrams: 09/13/17 07:15 09/13/17 07:15 Lab Results 09/13/17 09/13/17 Range/Units 07:15 07:15 WBC 4.6 (4.0-11.0) th/mm3 RBC 4.85 (4.50-5.90) mil/mm3 Hgb 14.3 (13.0-17.0) gm/dL Hct 43.2 (39.0-51.0) % MCV 89.2 (80.0-100.0) fL MCH 29.5 (27.0-34.0) pg MCHC 33.1 (32.0-36.0) % RDW 14.0 (11.6-17.2) % Plt Count 213 (150-450) th/mm3 MPV 9.0 (7.0-11.0) fL Neut % (Auto) 35.7 (16.0-70.0) % Lymph % (Auto) 52.2 H (9.0-44.0) % [place] % (Auto) 6.8 (0.0-8.0) % Eos % (Auto) 3.9 (0.0-4.0) % Baso % (Auto) 1.4 (0.0-2.0) % Neut # (Auto) 1.6 L (1.8-7.7) th/mm3 Lymph # (Auto) 2.4 (1.0-4.8) th/mm3 [place] # (Auto) 0.3 (0.0-0.9) th/mm3 Eos # (Auto) 0.2 (0.0-0.4) th/mm3 Baso # (Auto) 0.1 (0.0-0.2) th/mm3 WBC Differential . Differential Comment Auto diff final Sodium 145 (136-145) meq/L Potassium 3.3 L (3.5-5.1) meq/L Chloride 112 H (98-107) meq/L Carbon Dioxide 22.0 (21.0-32.0) meq/L Anion Gap 11 (5-15) meq/L BUN 6 L (7-18) mg/dL Creatinine 1.05 (0.60-1.30) mg/dL Estimated GFR Greater than 89 (>89) mL/min Random Glucose 92 (74-106) mg/dL Calcium 7.9 L (8.5-10.1) mg/dL Total Bilirubin 0.3 (0.2-1.0) mg/dL AST 22 (15-37) U/L ALT 27 (12-78) U/L Alkaline Phosphatase 67 (45-117) U/L Total Protein 6.8 (6.4-8.2) g/dL Albumin 3.9 (3.4-5.0) g/dL TSH 1.050 (0.358-3.740) uIU/mL Serum Alcohol 174 H (0-5) mg/dL Discharge Plan Discharge Disposition Patient Disposition: 30 Still Patient Discharge Details Discharge Problem: Suicidal ideation Physicians Team ED Provider: Isaak White ED Midlevel Provider: Nicolette Rene Primary Care Provider: Primary Care Arlin Bradshaw Rxs /Orders / Referrals /Forms Prescriptions: No Action No Known Home Medications RF: 0 Status ED Status: With Doctor
[2017-09-13 07:33] LABS: Baso # (Auto) 0.1 th/mm3 (0.0-0.2); Baso % (Auto) 1.4 % (0.0-2.0); Eos # (Auto) 0.2 th/mm3 (0.0-0.4); Eos % (Auto) 3.9 % (0.0-4.0); Hematocrit 43.2 % (39.0-51.0); Hemoglobin 14.3 gm/dL (13.0-17.0); Lymph # (Auto) 2.4 th/mm3 (1.0-4.8); Lymph % (Auto) 52.2 % (9.0-44.0); Mean Corpuscular HGB Conc 33.1 % (32.0-36.0); Mean Corpuscular Hemoglobin 29.5 pg (27.0-34.0); Mean Corpuscular Volume 89.2 fL (80.0-100.0); Mono # (Auto) 0.3 th/mm3 (0.0-0.9); Mono % (Auto) 6.8 % (0.0-8.0); Neut # (Auto) 1.6 th/mm3 (1.8-7.7); Neut % (Auto) 35.7 % (16.0-70.0); Platelet Count 213 th/mm3 (150-450); Red Blood Count 4.85 mil/mm3 (4.50-5.90); White Blood Count 4.6 th/mm3 (4.0-11.0)
[2017-09-13 07:42] LABS: Alanine Aminotransferase 27 U/L (12-78); Albumin 3.9 g/dL (3.4-5.0); Anion Gap 11 meq/L (5-15); Aspartate Aminotransferase 22 U/L (15-37); Blood Urea Nitrogen 6 mg/dL (7-18); Calcium 7.9 mg/dL (8.5-10.1); Chloride 112 meq/L (98-107); Glomerular Filtration Rate Greater Than 89 mL/min (>89); Glucose,Random 92 mg/dL (74-106); Potassium 3.3 meq/L (3.5-5.1); Sodium 145 meq/L (136-145)
[2017-09-13 07:47] LABS: Alcohol 174 mg/dL (0-5)
[2017-09-13 07:53] LABS: Alkaline Phosphatase 67 U/L (45-117); Total Protein 6.8 g/dL (6.4-8.2)
[2017-09-13 09:55] LABS: Amphetamine Screen,Urine Neg (Neg); Barbiturate Screen,Urine Neg (Neg); Cannabinoid Screen,Urine Neg (Neg); Cocaine Screen,Urine Pos (Neg); Opiate Screen,Urine Neg (Neg)
[2017-09-13] MEDS ORDERED: CARBAMAZEPINE 200 MG PO SCH (11:15)
--- NOTE | 2017-09-13 11:51 | ED ---
HPI - Psych - General Source: patient Mode of arrival: ambulatory - History of Present Illness MD complaint: suicidal ideation Onset (ago): month(s) Duration: intermittent History of same: Yes Relieving factors: medication Exacerbating factors: alcohol (BAL .174) Context: not taking psychiatric medications Associated psychiatric symptoms: auditory hallucinations (Command) Treatments prior to arrival: none If self harm: admits thoughts of self harm, has plan (hanging) - General Chief Complaint: Psychiatric Symptoms Stated Complaint: Medical Time Seen by Provider: 09/13/17 07:03 - History of Present Illness HPI Narrative: This is a 46 year-old single, -Spanish male who presents voluntarily for auditory command hallucinations which are 'telling me to kill myself'. Patient is well known to this facility with his last inpatient psychiatry admission 07/2016. He is established with [facility] however, has not been medicated since 04/2017 according to their records. Reviewed electronic medical record, labs, and discussed case with staff. BAL .174 Patient was evaluated in his room in D pod with Eric Vega, [employer] present. Patient found sitting on his stretcher awake, alert, and oriented X 4. He is somewhat disheveled. His speech is clear, rapid, at times illogical, and disorganized. Initially, he was tangential, talking to no one in particular in an angry manner. When asked why, he stated "I'm angry" but was unable to provide a specific reason for his anger. He endorses suicidal ideation by hanging and states that he "put a wire around my neck a few days ago ". He does seem internally stimulated with some thought blocking present. He is a poor historian with dates, it is not evident if this is due to thought blocking or some neurocognitive impairment. He reports feeling labile stating, "I go from crying to being angry and yelling". His mood is somewhat irritable as is his affect initially. In spite of this, he is polite and cooperates to the best of his ability. I can elicit no delusional material. He is aware that he has decompensated without the medications and is requesting to be admitted voluntarily for stabilization. Patient does report that he is currently on probation. (Salome Naranjo) - Related Data Home Medications Medication Instructions Recorded Confirmed carbamazepine 200 mg PO BID 09/13/17 09/13/17 haloperidol decanoate [Haldol 100 mg IM Q4W 09/13/17 09/13/17 Decanoate] haloperidol lactate [Haldol] 5 mg IM DAILY 09/13/17 09/13/17 quetiapine 600 mg PO HS 09/13/17 09/13/17 trihexyphenidyl 5 mg PO BID 09/13/17 09/13/17 Allergies Allergy/AdvReac Type Severity Reaction Status Date / Time levetiracetam Allergy Intermediate Nausea/Vomi Verified 09/13/17 07:31 ting penicillin G Allergy Mild SWELLING,IT Verified 09/13/17 07:31 ARLETH Review of Systems All other systems reviewed negative except as stated in HPI [facility] - History History Provided By: Patient - Tobacco History Second Hand Smoke Exposure: No Tobacco Use In Past 30 Days: No Smoking Status: Current every day smoker Packs Per Day: 0.5 Cigarettes Per Day: 10.0 - Alcohol History How Often Do You Have a Drink Containing Alcohol: Monthly or less - Substance Use History Substance History: No History of Abuse - Travel History Recent Travel in the [place] Within the Last 8 Weeks: No Recent Travel Out of the Country Within the Last 8 Weeks: No - Immunization History Tetanus Immunization: Unsure Hx Influenza Vaccine This Season: No Psychiatric History - Psychiatric History Psychiatric Treatment History: History of Psychiatric Treatment History of Inpatient Treatment: Yes Firearms in Home: No - Psychiatric History Extensive history going back to 2010 with this facility. Last inpatient admission was July 2016. Follows-up outpatient at [facility]. Last Medications prescribed and Haldol Deaconate injection 04/2017. (Salome Naranjo) - Family Psychiatric History Denies knowledge of familial history. (Salome Naranjo) Physical Exam - General Limitations: no limitations General appearance: alert Mental Status Examination Appearance: Disheveled Consciousness: Alert, Highly distractible Orientation: x4 Motor Activity: Other (sitting on stretcher) Speech: Rapid Language: Adequate Fund of Knowledge: Inadequate Attention and Concentration: Easily distracted Memory: Impaired Mood: Anxious, Irritable Affect: Irritable, Anxious Thought Process & Associations: Disorganized Thought Content: Hallucinations Hallucination Type: Auditory (Commanding to harm self and others) Delusion Type: None Suicidal Ideation: Yes Suicidal Plan: Yes Suicidal Intention: No Homicidal Ideation: Yes (no one specific) Homicidal Plan: No Homicidal Intention: No Insight: Fair Judgment: Poor Initial Documented Vital Signs Temperature 97.8 F 09/13/17 06:44 Pulse Rate 81 09/13/17 06:44 Respiratory Rate 16 09/13/17 06:44 Blood Pressure 109/58 L 09/13/17 06:44 Pulse Oximetry 100 09/13/17 06:44 Last Documented Vital Signs Temperature 97.8 F 09/13/17 06:44 Pulse Rate 75 09/13/17 09:18 Respiratory Rate 16 09/13/17 09:18 Blood Pressure 108/58 L 09/13/17 09:18 Pulse Oximetry 99 09/13/17 09:18 MDM - Psych - Diagnosis (1) Schizoaffective disorder, bipolar type Status: Acute - Differential Diagnosis Likely: acute psychosis, suicidal ideation - Lab Data Result diagrams: 09/13/17 07:15 09/13/17 07:15 - [facility] Narrative Medical decision making narrative: Given the patient's extensive history of psychiatric illness and his endorsement of suicidal ideation, he meets admission criteria and will be admitted voluntarily to the 2700 unit for further psychiatric stabilization. Hopeful that that he will be able to quickly move to a lower acuity unit. I have obtained signed consents from the patient and ordered his medications to be restarted. (Salome Naranjo) - Lab Data Lab Results 09/13/17 09/13/17 09/13/17 Range/Units 07:15 07:15 09:40 WBC 4.6 (4.0-11.0) th/mm3 RBC 4.85 (4.50-5.90) mil/mm3 Hgb 14.3 (13.0-17.0) gm/dL Hct 43.2 (39.0-51.0) % MCV 89.2 (80.0-100.0) fL MCH 29.5 (27.0-34.0) pg MCHC 33.1 (32.0-36.0) % RDW 14.0 (11.6-17.2) % Plt Count 213 (150-450) th/mm3 MPV 9.0 (7.0-11.0) fL Neut % (Auto) 35.7 (16.0-70.0) % Lymph % (Auto) 52.2 H (9.0-44.0) % [place] % (Auto) 6.8 (0.0-8.0) % Eos % (Auto) 3.9 (0.0-4.0) % Baso % (Auto) 1.4 (0.0-2.0) % Neut # (Auto) 1.6 L (1.8-7.7) th/mm3 Lymph # (Auto) 2.4 (1.0-4.8) th/mm3 [place] # (Auto) 0.3 (0.0-0.9) th/mm3 Eos # (Auto) 0.2 (0.0-0.4) th/mm3 Baso # (Auto) 0.1 (0.0-0.2) th/mm3 WBC Differential . Differential Comment Auto diff final Sodium 145 (136-145) meq/L Potassium 3.3 L (3.5-5.1) meq/L Chloride 112 H (98-107) meq/L Carbon Dioxide 22.0 (21.0-32.0) meq/L Anion Gap 11 (5-15) meq/L BUN 6 L (7-18) mg/dL Creatinine 1.05 (0.60-1.30) mg/dL Estimated GFR Greater than 89 (>89) mL/min Random Glucose 92 (74-106) mg/dL Calcium 7.9 L (8.5-10.1) mg/dL Total Bilirubin 0.3 (0.2-1.0) mg/dL AST 22 (15-37) U/L ALT 27 (12-78) U/L Alkaline Phosphatase 67 (45-117) U/L Total Protein 6.8 (6.4-8.2) g/dL Albumin 3.9 (3.4-5.0) g/dL TSH 1.050 (0.358-3.740) uIU/mL Urine Opiates Screen Neg (Neg) Ur Barbiturates Screen Neg (Neg) Ur Amphetamines Screen Neg (Neg) U Benzodiazepines Scrn Neg (Neg) Urine Cocaine Screen Pos (Neg) U Cannabinoids Screen Neg (Neg) Serum Alcohol 174 H (0-5) mg/dL
[2017-09-13] MEDS ORDERED: Haloperidol Inj 5 MG/ML Ampul IM SCH (12:00)
[2017-09-13] MEDS: Haloperidol 5 MG Tablet PO SCH (12:24)
[2017-09-13] MEDS: carBAMazepine 200 MG Tablet PO SCH ×2 (12:24→22:08)
[2017-09-13] MEDS ORDERED: Haloperidol Decanoate Inj 50 MG/ML Ampul IM ONE (12:30)
[2017-09-14 10:36] LABS: Calcium 8.9 mg/dL (8.5-10.1); Carbon Dioxide 25.2 meq/L (21.0-32.0); Chol/HDL Ratio 2.72 Ratio; HDL Cholesterol 51.3 mg/dL (40.0-60.0); Potassium 4.2 meq/L (3.5-5.1)
[2017-09-14] MEDS: Haloperidol 5 MG Tablet PO SCH (12:34)
[2017-09-14] MEDS: carBAMazepine 200 MG Tablet PO SCH ×2 (12:42→21:14)
[2017-09-14] MEDS ORDERED: Haloperidol Decanoate Inj 50 MG/ML Ampul IM ONE (14:00)
[2017-09-14 14:07] LABS: Hemoglobin A1c 4.7 % (4.3-6.0)
--- NOTE | 2017-09-14 14:09 | P.HPPSY ---
Provisional Diagnosis Admission Date: September 13, 2017 11:11 [place] I.: Schizoaffective disorderbipolar type Competence Certification of Person's Competence To Provide Express and Informed Consent I have personally examined George Lloyd, a person being served at [facility] on, September 14, 2017 1400. Express and informed consent means consent voluntarily given in writing, by a competent person, after sufficient explanation and disclosure of the subject matter involved to enable the person to make a knowing and willful decision without any element of force, fraud, deceit, duress, or other form of constraint or coercion. This person is 18 years of age or older, is not now known to be incompetent to consent to treatment with a guardian advocate, and does not have a health care surrogate or proxy currently making medical treatment decisions. I have found this person to be one of the following: [xxx] Competent to provide express and informed consent, as defined above, for voluntary admission to this facility and is competent to provide express and informed consent for treatment. He/she has the consistent capacity to make well reasoned, willful, and knowing decisions concerning his or her medical or mental health treatment. The person fully and consistently understands the purpose of the admission for examination/placement and is fully capable of personally exercising all rights assured [place] Incompetent to provide express and informed consent to voluntary admission, and this is incompetent to provide express and informed consent to treatment. The person must be transferred to involuntary status and a petition for a guardian advocate filed with the Circuit Court. [] Refusing to provide express and informed consent to voluntary admission but is competent to provide express and informed consent for treatment. The person must be discharged or transferred to involuntary status. Form shall be completed within 24 hours of a person's arrival at the receiving facility and filed in the clinical record of each person: 1. Admitted on a voluntary basis 2. Permitted to provide express and informed consent to his/her own treatment 3. Allowed to transfer from involuntary to voluntary status 4. Prior to permitting a person to consent to his or her own treatment after having been previously found incompetent to consent to treatment. History of Present Illness Capacity: Has capacity History of Present Illness: Patient is a 46-year-old -[place] man, single, has fianc, homeless, unemployed, on probation, with a past psychiatric history of schizoaffective disorder bipolar type, with multiple psychiatric admissions, multiple previous suicide attempts and self-injurious behavior via cutting, denies any substance use history also positive for cocaine and U tox and alcohol level of 174, with a past medical history of hyperlipidemia and GERD who presented to the ED voluntarily endorsing command auditory hallucinations, recent suicide ideations , and not having been adherent to medication since April which patient was admitted to the inpatient psychiatry unit for further evaluation and management. As per chart patient was initially seen by AMIE Naranjo noted : Patient was evaluated in his room in D pod with Eric Vega, Music Department Chair present. Patient found sitting on his stretcher awake, alert, and oriented X 4. He is somewhat disheveled. His speech is clear, rapid, at times illogical, and disorganized. Initially, he was tangential, talking to no one in particular in an angry manner. When asked why, he stated "I'm angry" but was unable to provide a specific reason for his anger. He endorses suicidal ideation by hanging and states that he "put a wire around my neck a few days ago". He does seem internally stimulated with some thought blocking present. He is a poor historian with dates, it is not evident if this is due to thought blocking or some neurocognitive impairment. He reports feeling labile stating, "I go from crying to being angry and yelling". His mood is somewhat irritable as is his affect initially. In spite of this, he is polite and cooperates to the best of his ability. I can elicit no delusional material. He is aware that he has decompensated without the medications and is requesting to be admitted voluntarily for stabilization. Patient does report that he is currently on probation. Patient was foun to ambulate on the unit noted calm, cooperative; seen with nurse. Patient was found to be appearing dysphoric, stated that he had not been feeling good for the past month, not adherent to medications and having auditory hallucinations commanding him to kill himself. Patient reports having been feeling depressed along with suicide ideations "off-and-on" along with decreased sleep, energy and concentration along with decreased appetite. Patient states that he had been feeling like hurting himself and was having suicide ideations and noted to have increasing episodes of crying recently. Patient this time contracts for safety here on the unit continues to feel depressed continues with suicide ideations and auditory hallucinations. Past psychiatric history: Previous psychiatric diagnosis schizoaffective disorder bipolar type, multiple psychiatric admissions, multiple suicide attempts last time being 1 year ago, history of self-injurious behavior via cutting. Patient continued to his [facility] for outpatient mental health follow-up and previously on Tegretol, Haldol, Seroquel and Artane. Past medical history: Hyperlipidemia, GERD Substance history: Denies although patient is urine toxicology positive for cocaine and BAL is 174 Allergies: NKDA Social history: Single but engaged and has darvin, on probation, reports there is a no contact order between him and his fiance. - Inpatient Certification I certify that the inpatient services were ordered in accordance with Medicare regulations governing the order. This includes certification that hospital inpatient services are reasonable and necessary and in the case of services not specified as inpatient-only under 42 CFR 419.22(n), that they are appropriately provided as inpatient services in accordance to with the 2-midnight benchmark under 43 CFR 412.3(e) I certify that inpatient psychiatric hospital services are medically necessary. Evaluation and treatment and/or diagnostic testing are expected to improve the patient's condition. The patient needs on a daily basis, active treatment furnished directly by or requiring the supervision of inpatient psychiatric facility personnel. Estimated Total Length of Stay (Days): 7 Plans for Post Hospital Care: Home Review of Systems All other systems reviewed negative except as stated in HPI PMFSH - History History Provided By: Patient - Tobacco History Second Hand Smoke Exposure: Yes Tobacco Use In Past 30 Days: Yes Smoking Status: Current every day smoker Tobacco Type: Cigarettes Packs Per Day: 0.5 Cigarettes Per Day: 10.0 - Alcohol History How Often Do You Have a Drink Containing Alcohol: 4 or more times a week - Substance Use History Substance History: Unable to Obtain - Travel History Recent Travel in the [place] Within the Last 8 Weeks: No Recent Travel Out of the Country Within the Last 8 Weeks: No - Immunization History Tetanus Immunization: Unsure Hx Influenza Vaccine This Season: No Quality Measures - Psychiatric History Violence risk to others in the last 6 months: Low Violence risk to self in the last 6 months: Elevated - Substance Abuse History Drug or alcohol use in the past 12 months: See HPI - Patient Strengths Patient's strengths (minimum of 2): Verbal and communicative Medications and Allergies Active Medications: Active Medications Al Hydroxide/Mg Hydroxide (Milk Of Dary Mckay) 30 ml PO DAILY PRN PRN Reason: CONSTIPATION Carbamazepine (Tegretol) 200 mg PO BID [facility] Last Admin: 09/14/17 12:42 Dose: 200 mg Haloperidol (Haldol) 5 mg PO DAILY [facility] Last Admin: 09/14/17 12:34 Dose: 5 mg Haloperidol Decanoate (Haldol Decanoate Ini) 100 mg IM ONCE ONE Stop: 09/14/17 14:01 Nicotine (Habitrol 21 Mg Patch.24 Hr) 1 patch T-DERMAL DAILY [facility] Last Admin: 09/14/17 12:30 Dose: 1 patch Patch Removal (Remove Old Patch) 1 each T-DERMAL HS [facility] Last Admin: 09/13/17 22:11 Dose: Not Given Quetiapine Fumarate (Seroquel) 600 mg PO [facility] Trihexyphenidyl HCl (Artane) 5 mg PO BID [facility] Last Admin: 09/14/17 12:34 Dose: 5 mg Allergies Allergy/AdvReac Type Severity Reaction Status Date / Time levetiracetam Allergy Intermediate Nausea/Vomi Verified 09/13/17 07:31 ting penicillin G Allergy Mild SWELLING,IT Verified 09/13/17 07:31 ARLETH Home Medications Medication Instructions Recorded Confirmed Type carbamazepine 200 mg PO BID 09/13/17 09/13/17 History haloperidol decanoate [Haldol 100 mg IM Q4W 09/13/17 09/13/17 History Decanoate] haloperidol lactate [Haldol] 5 mg IM DAILY 09/13/17 09/13/17 History quetiapine 600 mg PO HS 09/13/17 09/13/17 History trihexyphenidyl 5 mg PO BID 09/13/17 09/13/17 History Results - Labs CBC & Chem 7: 09/13/17 07:15 09/14/17 09:34 Labs: Laboratory Results - last 24 hr 09/14/17 09:34 Sodium 143 Potassium 4.2 D Chloride 110 H Carbon Dioxide 25.2 Anion Gap 8 BUN 14 Creatinine 1.26 Estimated GFR 75 L Random Glucose 93 Calcium 8.9 D Triglycerides 137 Cholesterol 140 LDL Cholesterol, Calc 61 HDL Cholesterol 51.3 Cholesterol/HDL Ratio 2.72 Exam Vital signs: Vital Signs 09/14/17 06:42 Temperature 97.4 F L Pulse Rate 70 Respiratory Rate 19 Blood Pressure 120/82 Pulse Oximetry 97 Intake & Output 09/13/17 09/14/17 09/14/17 18:59 06:59 18:59 Weight 78 kg Other: Weight On Admission 78 kg Narrative: Patient not noted to be in acute distress, no gross motor abnormalities, no tremors or EPS, no noted psychomotor retardation or agitation. Mental Status Examination Appearance: Appropriate Consciousness: Alert Orientation: x4 Motor Activity: Other (sitting on stretcher) Speech: Unremarkable Language: Adequate Fund of Knowledge: Inadequate Attention and Concentration: Easily distracted Memory: Impaired Mood: Anxious Affect: Sad, Anxious Thought Process & Associations: Other ([place]) Thought Content: Hallucinations Hallucination Type: Auditory (Command type) Delusion Type: None Suicidal Ideation: Yes (Denies today) Suicidal Plan: No Suicidal Intention: No Homicidal Ideation: Yes (Denies today) Homicidal Plan: No Homicidal Intention: No Insight: Fair Judgment: Poor Assessment and Plan - Assessment (1) Schizoaffective disorder, bipolar type Code(s): F25.0 - Schizoaffective disorder, bipolar type Status: Acute - Plan Plan: Estimated LOS: [] days Patient is a 46-year-old -[place] man who carries a diagnosis schizoaffective disorder, multiple psychiatric admissions, multiple suicide attempts and self-injurious behavior with a recent urine toxicology positive for cocaine and alcohol level of 174 who presented to the ED voluntarily due to command auditory hallucination to kill himself and others, suicide ideations and depressed mood which currently at this time continues to be ongoing and requires inpatient psychiatric stabilization and for safety. Patient will resume Tegretol 200 mg p.o. twice daily, Seroquel 600 mg at bedtime, Artane 5 mg p.o. twice daily, we will continue to monitor mood and behavior. Collateral information pending. Patient currently under voluntary admission has capacity to consent for treatment. Discharge planning in progress. Justification for Continued Inpatient Stay: At risk of further decompensation a lower level care.
[2017-09-15] MEDS: carBAMazepine 200 MG Tablet PO SCH ×2 (12:00→20:33)
[2017-09-15] MEDS: Haloperidol 5 MG Tablet PO SCH (12:00)
--- NOTE | 2017-09-15 15:23 | P.PNPSY ---
Subjective Remarks: Pt seen and discussed with staff. He was compliant with medications and denies side effects. He reports AH instructing him to harm self. No aggression or agitation. Mental Status Examination Appearance: Appropriate Consciousness: Alert Orientation: x4 Motor Activity: Other (sitting on stretcher) Speech: Unremarkable Language: Adequate Fund of Knowledge: Inadequate Attention and Concentration: Easily distracted Memory: Impaired Mood: Anxious Affect: Sad, Anxious Thought Process & Associations: Other ([place]) Thought Content: Hallucinations Hallucination Type: Auditory (Command type) Delusion Type: None Suicidal Ideation: Yes (AH instructing to kill self) Suicidal Plan: No Suicidal Intention: No Homicidal Ideation: Yes (Denies today) Homicidal Plan: No Homicidal Intention: No Insight: Fair Judgment: Poor Assessment and Plan - Assessment (1) Schizoaffective disorder, bipolar type Code(s): F25.0 - Schizoaffective disorder, bipolar type Status: Acute - Plan Plan: Continue current tx plan. Justification for Continued Inpatient Stay: monitoring for safety
[2017-09-16] MEDS: carBAMazepine 200 MG Tablet PO SCH ×2 (09:27→21:18)
[2017-09-16] MEDS: Haloperidol 5 MG Tablet PO SCH (09:27)
--- NOTE | 2017-09-16 17:04 | P.PNPSY ---
Subjective Remarks: Patient seen for follow-up, chart reviewed. Discussion with nursing staff reported that the patient mostly isolative, sleeping during the day, continues report feeling depressed along with suicide ideations with no plan, seclusive to his room but compliant with medications. Patient was found to be calm and cooperative with interview, stating that he has been asleep most during the day. He mentions that his weekend went "okay a little", we will try to attend some groups but continues report feeling "upset" as he is worried about his mental health, and homelessness. Patient tolerated medications well, eating and drinking well reported have some chest discomfort which she states it hurts when he presses on his chest that started this morning.. Patient also reports having auditory hallucinations "a little bit" but is not able to understand what the voices are saying. Review of Systems All other systems reviewed negative except as stated in HPI Mental Status Examination Appearance: Appropriate Consciousness: Alert Orientation: x4 Motor Activity: Other (sitting on stretcher) Speech: Unremarkable Language: Adequate Fund of Knowledge: Inadequate Attention and Concentration: Easily distracted Memory: Impaired Mood: Anxious Affect: Sad, Anxious Thought Process & Associations: Other ([place]) Thought Content: Hallucinations Hallucination Type: Auditory (Command type) Delusion Type: None Suicidal Ideation: Yes (AH instructing to kill self) Suicidal Plan: No Suicidal Intention: No Homicidal Ideation: Yes (Denies today) Homicidal Plan: No Homicidal Intention: No Insight: Fair Judgment: Poor Assessment and Plan - Assessment (1) Schizoaffective disorder, bipolar type Code(s): F25.0 - Schizoaffective disorder, bipolar type Status: Acute - Plan Plan: Patient continues report depressed mood, continue with suicide ideations. We will order EKG of the patient's chest pain, likely musculoskeletal as patient reports pain upon palpation and with certain movements. We will discontinue Haldol as patient is currently on quetiapine at 600 mg at bedtime, continue rest of medications. Continue to monitor mood and behavior. Continue to encourage patient to participate in groups and activities. Discharge planning a progress. Justification for Continued Inpatient Stay: At risk for further decompensation if at lower level of care
[2017-09-17] MEDS: carBAMazepine 200 MG Tablet PO SCH ×2 (08:35→20:13)
[2017-09-17] MEDS ORDERED: Aluminum/Magnesium/Simethacone Susp 30 ML UDC PO PRN (13:44)
--- NOTE | 2017-09-17 13:59 | P.PNPSY ---
Subjective Remarks: Patient seen for follow-up, chart reviewed. Discussion with nursing staff reported that the patient is a compliant medications been mostly isolative in his room and only out for meals. Patient was found to be calm and cooperative with interview, patient states that he slept well last evening, that he is feeling "better" per continues report feeling depressed but is lessening and has less suicidal ideations last time being last evening. Patient reports that he is agreed to try to go to some groups, denying any auditory hallucinations today. Patient was noted to be disheveled and slightly malodorous but agreed to take a shower today. Review of Systems All other systems reviewed negative except as stated in HPI Mental Status Examination Appearance: Appropriate Consciousness: Alert Orientation: x4 Motor Activity: Other (sitting on stretcher) Speech: Unremarkable Language: Adequate Fund of Knowledge: Inadequate Attention and Concentration: Easily distracted Memory: Impaired Mood: Anxious Affect: Sad, Anxious Thought Process & Associations: Other ([place]) Thought Content: Hallucinations Hallucination Type: Auditory (lessening) Delusion Type: None Suicidal Ideation: Yes (lessening) Suicidal Plan: No Suicidal Intention: No Homicidal Ideation: Yes (Denies today) Homicidal Plan: No Homicidal Intention: No Insight: Fair Judgment: Impulsive Assessment and Plan - Assessment (1) Schizoaffective disorder, bipolar type Code(s): F25.0 - Schizoaffective disorder, bipolar type Status: Acute - Plan Plan: Patient continues to feel depressed but reports improving, reports decrease in suicidal ideations last time being last night. Patient continues to be isolative and requiring encouragement to maintain personal hygiene. We will continue current treatment as patient appears to responding improving. Continue to monitor mood and behavior. Continue to encourage patient to participate in groups and activities and maintain adequate hygiene. Discharge planning a progress. Justification for Continued Inpatient Stay: At risk for further decompensation if at lower level of care
--- NOTE | 2017-09-17 17:01 | ECG ---
Date Performed: 09/16/2017 Time Performed: 18:57:57 PTAGE: 46 years EKG: Sinus rhythm NORMAL ECG PREVIOUS TRACING : 09/03/2015 19.11 Since the previous tracing, no significant change noted DOCTOR: Adria Worthy Interpretating Date/Time 09/17/2017 17:00:55
[2017-09-18] MEDS: carBAMazepine 200 MG Tablet PO SCH ×2 (08:33→20:49)
--- NOTE | 2017-09-18 17:38 | P.PNPSY ---
Subjective Remarks: Patient seen for follow-up, chart reviewed. Discussion with nursing staff reported that the patient had some sleep difficulty having reported nightmares but continues with AH of voices calling his name. Patient was found to be calm and cooperative with interview, interviewed with nurse. Patient states that he had been feeling "ok", less depressed but continues to feel stressed about the "situation out there". He continues to report intermittent SI and AH but no longer command in nature but calling his name. Patient is noted to be disheveled and malodorous and was reminded of the importance to maintain hygiene which he states will shower later today. Review of Systems All other systems reviewed negative except as stated in HPI Mental Status Examination Appearance: Appropriate Consciousness: Alert Orientation: x4 Motor Activity: Other (sitting on stretcher) Speech: Unremarkable Language: Adequate Fund of Knowledge: Inadequate Attention and Concentration: Easily distracted Memory: Impaired Mood: Anxious Affect: Sad, Anxious Thought Process & Associations: Other ([place]) Thought Content: Hallucinations Hallucination Type: Auditory (lessening) Delusion Type: None Suicidal Ideation: Yes (intermittent) Suicidal Plan: No Suicidal Intention: No Homicidal Ideation: No Homicidal Plan: No Homicidal Intention: No Insight: Fair Judgment: Impulsive Assessment and Plan - Assessment (1) Schizoaffective disorder, bipolar type Code(s): F25.0 - Schizoaffective disorder, bipolar type Status: Acute - Plan Plan: Patient with decrease in depressed mood, continues with intermittent SI but appears to be lessening along with intermittent AH. Treatment seems to be effective as patient appears to be improving. It is likely that patient had not been adherent to treatment as he is currently responding to current regimen with progressive improvements. Encourage patinet to have adequate hygiene, be less seclusive and participate in groups and activities. Discharge planning in progress. Justification for Continued Inpatient Stay: At risk for further decompensation at lower level of care.
[2017-09-19] MEDS: carBAMazepine 200 MG Tablet PO SCH (09:05)
--- NOTE | 2017-09-19 17:16 | P.DSPSY ---
Psychiatry Discharge Summary Inpatient Psychiatric care?: Yes Advance Directives: No Mental Health Advance Directive: No Health Care Proxy: No - Admission Admission Date: September 13, 2017 11:11 - Admission Diagnosis (1) Schizoaffective disorder, bipolar type Code(s): F25.0 - Schizoaffective disorder, bipolar type Brief History: Patient is a 46-year-old -[place]i man, single, has fianc, homeless, unemployed, on probation, with a past psychiatric history of schizoaffective disorder bipolar type, with multiple psychiatric admissions, multiple previous suicide attempts and self-injurious behavior via cutting, denies any substance use history also positive for cocaine and U tox and alcohol level of 174, with a past medical history of hyperlipidemia and GERD who presented to the ED voluntarily endorsing command auditory hallucinations, recent suicide ideations , and not having been adherent to medication since April which patient was admitted to the inpatient psychiatry unit for further evaluation and management. As per chart patient was initially seen by AMIE Naranjo noted : Patient was evaluated in his room in D pod with Eric Vega, Ironer Hand present. Patient found sitting on his stretcher awake, alert, and oriented X 4. He is somewhat disheveled. His speech is clear, rapid, at times illogical, and disorganized. Initially, he was tangential, talking to no one in particular in an angry manner. When asked why, he stated "I'm angry" but was unable to provide a specific reason for his anger. He endorses suicidal ideation by hanging and states that he "put a wire around my neck a few days ago". He does seem internally stimulated with some thought blocking present. He is a poor historian with dates, it is not evident if this is due to thought blocking or some neurocognitive impairment. He reports feeling labile stating, "I go from crying to being angry and yelling". His mood is somewhat irritable as is his affect initially. In spite of this, he is polite and cooperates to the best of his ability. I can elicit no delusional material. He is aware that he has decompensated without the medications and is requesting to be admitted voluntarily for stabilization. Patient does report that he is currently on probation. Patient was foun to ambulate on the unit noted calm, cooperative; seen with nurse. Patient was found to be appearing dysphoric, stated that he had not been feeling good for the past month, not adherent to medications and having auditory hallucinations commanding him to kill himself. Patient reports having been feeling depressed along with suicide ideations "off-and-on" along with decreased sleep, energy and concentration along with decreased appetite. Patient states that he had been feeling like hurting himself and was having suicide ideations and noted to have increasing episodes of crying recently. Patient this time contracts for safety here on the unit continues to feel depressed continues with suicide ideations and auditory hallucinations. Past psychiatric history: Previous psychiatric diagnosis schizoaffective disorder bipolar type, multiple psychiatric admissions, multiple suicide attempts last time being 1 year ago, history of self-injurious behavior via cutting. Patient continued to his [facility] for outpatient mental health follow-up and previously on Tegretol, Haldol, Seroquel and Artane. Past medical history: Hyperlipidemia, GERD Substance history: Denies although patient is urine toxicology positive for cocaine and BAL is 174 Allergies: NKDA Social history: Single but engaged and has fianc, on probation, reports there is a no contact order between him and his fiance. Tobacco Use In Past 30 Days: Yes How Often Do You Have a Drink Containing Alcohol: 4 or more times a week Hospital Course: Patient is a 46-year-old -[place]i man, single, has fianc, homeless, unemployed, on probation, with a past psychiatric history of schizoaffective disorder bipolar type, with multiple psychiatric admissions, multiple previous suicide attempts and self-injurious behavior via cutting, denies any substance use history also positive for cocaine and U tox and alcohol level of 174, with a past medical history of hyperlipidemia and GERD who presented to the ED voluntarily endorsing command auditory hallucinations, recent suicide ideations , and not having been adherent to medication since April which patient was admitted to the inpatient psychiatry unit for further evaluation and management. Patient was resumed on tegretol 200mg BID, quetapine 600m HS and artane 5mg BID, along with medications for chronic medical issues which he tolerated well with minimal effect. Patient was admitted to a locked, inpatient psychiatric unit. Appropriate precautions were in place throughout patient's hospital stay. Patient was seen and examined on the unit by psychiatry. Psychotropic medications were adjusted. There was no evidence of any suicidality or homicidality on the inpatient unit. Patient's behavior improved with the benefit of psychopharmacologic treatment. Counselor has arranged for follow up appointments for continuity of care. On the day of discharge: Patient seen and examined; chart reviewed. Case discussed with nurse and counselor. No behavioral issues overnight. On my examination today, the patient is to be discharged to cousins home. He denies any suicidal or homicidal ideation, intent or plan on direct questioning and contracts for safety. I can elicit no mood symptoms. He denies any audiovisual hallucinations. No delusional material verbalized today. He denies any side effects from medications. He has a good understanding of his medication regimen. No physical complaints. Suicide and violence risk assessment on day of discharge both suggest lower imminent risk, and the patient's level of function is adequate for planned level of outpatient care. Patient has maximized benefit from this inpatient psychiatric hospital stay and will be discharged with follow-up as arranged by counselor. Patient advised to return to psychiatric emergency room for any concerning psychiatric symptoms. Patient agrees with plan. - Discharge Discharge Date: 09/19/17 - Discharge Diagnosis (1) Schizoaffective disorder, bipolar type Code(s): F25.0 - Schizoaffective disorder, bipolar type Status: Acute Discharge Disposition: Home - Discharge Instructions Discharge Diet: Regular Diet Activities You Can Perform: Regular- No Restrictions - Discharge Time > 30 minutes Mental Status Examination Appearance: Appropriate Consciousness: Alert Orientation: x4 Motor Activity: Other (sitting on stretcher) Speech: Unremarkable Language: Adequate Fund of Knowledge: Inadequate Attention and Concentration: Adequate Memory: Unremarkable Mood: Appropriate Affect: Appropriate Thought Process & Associations: Intact, Goal directed, Linear Thought Content: Appropriate Hallucination Type: None Delusion Type: None Suicidal Ideation: No Suicidal Plan: No Suicidal Intention: No Homicidal Ideation: No Homicidal Plan: No Homicidal Intention: No Insight: Fair Judgment: Impulsive Discharge/Advance Care Plan - Results Vital Signs: Last Vital Signs Temp 98 F 09/19/17 05:00 Pulse 68 09/19/17 05:00 Resp 16 09/19/17 05:00 BP 100/58 L 09/19/17 05:00 Pulse Ox 99 09/19/17 05:00 Lab Results: Laboratory Results Hemoglobin A1c 4.7 % (4.3-6.0) 09/14/17 09:34 Triglycerides 137 mg/dL (42-150) 09/14/17 09:34 Cholesterol 140 mg/dL (120-200) 09/14/17 09:34 LDL Cholesterol, Calc 61 mg/dL (0-99) 09/14/17 09:34 HDL Cholesterol 51.3 mg/dL (40.0-60.0) 09/14/17 09:34 TSH 1.050 uIU/mL (0.358-3.740) 09/13/17 07:15 Summary of Procedures: none Pending Results: None - Medications Number of antipsychotic medications at discharge: 1 - Discharge Care Plan Goals to Promote Your Health: * To prevent worsening of your condition and complications * To maintain your health at the optimal level Directions to Meet Your Goals: Take your medications as prescribed Follow your dietary instruction Follow activity as directed Keep your appointments as scheduled Take your immunizations and boosters as scheduled If your symptoms worsen call your PCP, if no PCP go to Urgent Care Center or Emergency Room For 01/10 questions related to your inpatient stay or results of tests pending at discharge, please contact Dr. Venkatesh Meyer MD at Smoking is Dangerous to Your Health. Avoid second hand smoking
== END 2017-09-19 15:25 | disposition home or self-care (01) ==
LOC: NEPD 06:42 → NEDA 11:11 → H270 12:36 → H260 09-16 17:25
PROVIDERS: ADMIT Student in an Organized Health Care Education/Training Program; ATTEND Student in an Organized Health Care Education/Training Program

== ENCOUNTER 2017-09-26 00:31 | Inpatient (IN) ==
[2017-09-26] MEDS ORDERED: Sod Chloride 0.9% Inj 1,000 ML IV.SIG ONE (01:52)
--- NOTE | 2017-09-26 01:57 | ED ---
HPI General Chief complaint: Psychiatric Symptoms Stated complaint: Vol Psy Time Seen by Provider: 09/26/17 01:51 History of Present Illness HPI narrative: This is a 46-year-old male who presents requesting psychiatric evaluation. He reports over the past few hours she has been having auditory hallucinations and suicidal thoughts. He reports that this evening he drank approximately half a cup of bleach and took a handful of his Artane pills in an attempt to kill himself. He reports that he immediately vomited them up. Symptoms are moderate with no obvious aggravating or relieving factors. He denies any chest pain, blurred vision, dizziness, lightheadedness, nausea, vomiting, abdominal pain, he denies any other toxic ingestions. This is his third visit this month to this emergency department. No other complaints. Related Data Previous Rx's Medication Instructions Recorded carbamazepine 200 mg PO BID 30 Days #60 tab 09/19/17 quetiapine 600 mg PO HS 30 Days #90 tab 09/19/17 trihexyphenidyl 5 mg PO BID 30 Days #60 tab 09/19/17 Allergies Allergy/AdvReac Type Severity Reaction Status Date / Time levetiracetam Allergy Intermediate Nausea/Vomi Verified 09/24/17 13:09 ting penicillin G Allergy Mild SWELLING,IT Verified 09/24/17 13:09 ARLETH Review of Systems Except as stated in HPI: all other systems reviewed are negative PMFSH Social History Social History Substance History: No History of Abuse Second Hand Smoke Exposure: Yes Smoking Status: Heavy tobacco smoker Tobacco Type: Cigarettes Packs Per Day: 0.5 Cigarettes Per Day: 10.0 How Often Do You Have a Drink Containing Alcohol: 4 or more times a week Recent Travel in [facility] within the Last 8 Weeks: No Recent Out of Country Travel within the Last 8 Weeks: No Exam Narrative Exam Narrative: GENERAL: Well-developed well-nourished male no acute distress SKIN: Warm and dry. A sutured laceration is noted to the left eyebrow. HEAD: Skin as noted above. Normocephalic. EYES: Pupils equal and round. No scleral icterus. Conjunctival injection noted left eye. ENT: No nasal bleeding or discharge. Mucous membranes pink and moist. NECK: Trachea midline. No JVD. CARDIOVASCULAR: Regular rate and rhythm. No murmur appreciated. RESPIRATORY: No accessory muscle use. Clear to auscultation. Breath sounds equal bilaterally. GASTROINTESTINAL: Abdomen soft, non-tender, nondistended. Hepatic and splenic margins not palpable. MUSCULOSKELETAL: No obvious deformities. No clubbing. No cyanosis. No edema. NEUROLOGICAL: Awake and alert. No obvious cranial nerve deficits. Motor grossly within normal limits. Normal speech. PSYCHIATRIC: Depressed mood. Course Initial Documented Vital Signs Temperature 98.2 F 09/26/17 00:44 Pulse Rate 87 09/26/17 00:44 Respiratory Rate 18 09/26/17 00:44 Blood Pressure 121/65 09/26/17 00:44 Pulse Oximetry 100 09/26/17 00:44 Last Documented Vital Signs Temperature 98.2 F 09/26/17 00:44 Pulse Rate 69 09/26/17 02:22 Respiratory Rate 15 09/26/17 02:22 Blood Pressure 133/75 09/26/17 02:22 Pulse Oximetry 99 09/26/17 02:22 Medical Decision Making MDM Narrative Medical decision making narrative: The patient was placed on ECG monitoring pulse oximetry. A 12 EKG was obtained. Lab work will be obtained. Poison control be contacted. The patient will be placed under Black act. Lab work is been reviewed. EKG reveals sinus rhythm, QRS 88, QTc 446. Tegretol level is 1.7. Tylenol and aspirin are negative. I discussed with poison control who recommends repeating EKG every 2 hours 3, repeating Tegretol level every 2 hours 3, monitoring for 6-8 hours for medical clearance. Repeat Tegretol levels are trending down. The patient was monitored with no change in symptoms. He is medically cleared for psychiatric disposition. Differential Diagnosis Differential Diagnosis: Overdose attempt versus acute psychosis versus substance -induced mood disorder versus adjustment reaction versus schizoaffective disorder versus schizophrenia Lab Data Result diagrams: 09/26/17 02:10 09/26/17 02:10 Lab Results 09/26/17 09/26/17 09/26/17 Range/Units 02:10 02:10 02:10 WBC 7.8 (4.0-11.0) th/mm3 RBC 4.98 (4.50-5.90) mil/mm3 Hgb 15.5 (13.0-17.0) gm/dL Hct 43.5 (39.0-51.0) % MCV 87.3 (80.0-100.0) fL MCH 31.2 (27.0-34.0) pg MCHC 35.7 (32.0-36.0) % RDW 13.5 (11.6-17.2) % Plt Count 212 (150-450) th/mm3 MPV 9.1 (7.0-11.0) fL Neut % (Auto) 53.1 (16.0-70.0) % Lymph % (Auto) 33.2 (9.0-44.0) % Ransom % (Auto) 7.4 (0.0-8.0) % Eos % (Auto) 4.4 H (0.0-4.0) % Baso % (Auto) 1.9 (0.0-2.0) % Neut # (Auto) 4.2 (1.8-7.7) th/mm3 Lymph # (Auto) 2.6 (1.0-4.8) th/mm3 Ransom # (Auto) 0.6 (0.0-0.9) th/mm3 Eos # (Auto) 0.3 (0.0-0.4) th/mm3 Baso # (Auto) 0.2 (0.0-0.2) th/mm3 WBC Differential . Differential Comment Auto diff final Sodium 139 (136-145) meq/L Potassium 4.1 (3.5-5.1) meq/L Chloride 105 (98-107) meq/L Carbon Dioxide 28.3 (21.0-32.0) meq/L Anion Gap 6 (5-15) meq/L BUN 36 H (7-18) mg/dL Creatinine 1.46 H (0.60-1.30) mg/dL Estimated GFR 64 L (>89) mL/min Random Glucose 82 (74-106) mg/dL Calcium 8.0 L (8.5-10.1) mg/dL Total Bilirubin 0.4 (0.2-1.0) mg/dL AST 24 (15-37) U/L ALT 26 (12-78) U/L Alkaline Phosphatase 82 (45-117) U/L Total Protein 7.2 (6.4-8.2) g/dL Albumin 3.8 (3.4-5.0) g/dL Salicylates Less than 1.7 L (2.8-20.0) mg/dL Acetaminophen Less than 2.0 L (10.0-30.0) mcg/mL Carbamazepine 1.7 L (4.0-12.0) mcg/mL Serum Alcohol Less than 3 (0-5) mg/dL 09/26/17 09/26/17 Range/Units 03:42 05:57 WBC (4.0-11.0) th/mm3 RBC (4.50-5.90) mil/mm3 Hgb (13.0-17.0) gm/dL Hct (39.0-51.0) % MCV (80.0-100.0) fL MCH (27.0-34.0) pg MCHC (32.0-36.0) % RDW (11.6-17.2) % Plt Count (150-450) th/mm3 MPV (7.0-11.0) fL Neut % (Auto) (16.0-70.0) % Lymph % (Auto) (9.0-44.0) % Ransom % (Auto) (0.0-8.0) % Eos % (Auto) (0.0-4.0) % Baso % (Auto) (0.0-2.0) % Neut # (Auto) (1.8-7.7) th/mm3 Lymph # (Auto) (1.0-4.8) th/mm3 Ransom # (Auto) (0.0-0.9) th/mm3 Eos # (Auto) (0.0-0.4) th/mm3 Baso # (Auto) (0.0-0.2) th/mm3 WBC Differential Differential Comment Sodium (136-145) meq/L Potassium (3.5-5.1) meq/L Chloride (98-107) meq/L Carbon Dioxide (21.0-32.0) meq/L Anion Gap (5-15) meq/L BUN (7-18) mg/dL Creatinine (0.60-1.30) mg/dL Estimated GFR (>89) mL/min Random Glucose (74-106) mg/dL Calcium (8.5-10.1) mg/dL Total Bilirubin (0.2-1.0) mg/dL AST (15-37) U/L ALT (12-78) U/L Alkaline Phosphatase (45-117) U/L Total Protein (6.4-8.2) g/dL Albumin (3.4-5.0) g/dL Salicylates (2.8-20.0) mg/dL Acetaminophen (10.0-30.0) mcg/mL Carbamazepine 1.6 L 1.6 L (4.0-12.0) mcg/mL Serum Alcohol (0-5) mg/dL Discharge Plan Discharge Disposition Patient Disposition: 30 Still Patient Discharge Condition Condition: Stable Discharge Details Diagnosis: Encounter for medical clearance for patient hold, Intentional overdose of drug in tablet form Physicians Team ED Provider: Fely Odom ED Midlevel Provider: Freddie Drew Primary Care Provider: Primary Care Nayi,Ariln Rxs /Orders / Referrals /Forms Prescriptions: No Action quetiapine 200 mg Tablet 600 mg PO HS 30 Days Qty: 90 RF: 0 carbamazepine 200 mg Tablet Extended Release 12 Hr 200 mg PO BID 30 Days Qty: 60 RF: 0 trihexyphenidyl 5 mg Tablet 5 mg PO BID 30 Days Qty: 60 RF: 0 Status ED Status: Medically Cleared
[2017-09-26 02:23] LABS: Baso # (Auto) 0.2 th/mm3 (0.0-0.2); Baso % (Auto) 1.9 % (0.0-2.0); Eos # (Auto) 0.3 th/mm3 (0.0-0.4); Eos % (Auto) 4.4 % (0.0-4.0); Hematocrit 43.5 % (39.0-51.0); Hemoglobin 15.5 gm/dL (13.0-17.0); Lymph # (Auto) 2.6 th/mm3 (1.0-4.8); Lymph % (Auto) 33.2 % (9.0-44.0); Mean Corpuscular HGB Conc 35.7 % (32.0-36.0); Mean Corpuscular Hemoglobin 31.2 pg (27.0-34.0); Mean Corpuscular Volume 87.3 fL (80.0-100.0); Mean Platelet Volume 9.1 fL (7.0-11.0); Mono # (Auto) 0.6 th/mm3 (0.0-0.9); Mono % (Auto) 7.4 % (0.0-8.0); Neut # (Auto) 4.2 th/mm3 (1.8-7.7); Neut % (Auto) 53.1 % (16.0-70.0); Platelet Count 212 th/mm3 (150-450); Red Blood Count 4.98 mil/mm3 (4.50-5.90); Red Cell Distribution Width 13.5 % (11.6-17.2); White Blood Count 7.8 th/mm3 (4.0-11.0)
[2017-09-26 02:35] LABS: Alkaline Phosphatase 82 U/L (45-117); Carbamazepine (Tegretol) 1.7 mcg/mL (4.0-12.0); Total Protein 7.2 g/dL (6.4-8.2)
[2017-09-26 02:42] LABS: Alanine Aminotransferase 26 U/L (12-78); Albumin 3.8 g/dL (3.4-5.0); Anion Gap 6 meq/L (5-15); Aspartate Aminotransferase 24 U/L (15-37); Blood Urea Nitrogen 36 mg/dL (7-18); Carbon Dioxide 28.3 meq/L (21.0-32.0); Chloride 105 meq/L (98-107); Glomerular Filtration Rate 64 mL/min (>89); Glucose,Random 82 mg/dL (74-106); Potassium 4.1 meq/L (3.5-5.1); Sodium 139 meq/L (136-145)
[2017-09-26 08:04] LABS: Amphetamine Screen,Urine Neg (Neg); Barbiturate Screen,Urine Neg (Neg); Cannabinoid Screen,Urine Neg (Neg); Cocaine Screen,Urine Pos (Neg)
[2017-09-26 08:05] LABS: Opiate Screen,Urine Neg (Neg)
--- NOTE | 2017-09-26 19:15 | ECG ---
Date Performed: 09/26/2017 Time Performed: 02:19:40 PTAGE: 46 years EKG: Sinus rhythm NORMAL ECG PREVIOUS TRACING : 09/16/2017 18.57 Since the previous tracing, no significant change noted DOCTOR: Tejinder Kellogg Interpretating Date/Time 09/26/2017 19:14:53
--- NOTE | 2017-09-26 19:16 | ECG ---
Date Performed: 09/26/2017 Time Performed: 04:43:14 PTAGE: 46 years EKG: BORDLERLINE FIRST DEGREE AV BLOCK ABNORMAL ECG PREVIOUS TRACING : 09/26/2017 02.19 Since the previous tracing, no significant change noted DOCTOR: Tejinder Kellogg Interpretating Date/Time 09/26/2017 19:15:44
--- NOTE | 2017-09-26 19:17 | ECG ---
Date Performed: 09/26/2017 Time Performed: 06:39:32 PTAGE: 46 years EKG: Sinus rhythm NORMAL ECG PREVIOUS TRACING : 09/26/2017 04.43 NM interval slightly shorter than from the prior tracing DOCTOR: Tejinder Kellogg Interpretating Date/Time 09/26/2017 19:16:28
[2017-09-27] MEDS ORDERED: QUEtiapine 100 MG Tablet PO ONE (09:35)
[2017-09-27] MEDS ORDERED: carBAMazepine 200 MG Tablet PO ONE (09:36)
[2017-09-27] MEDS ORDERED: Aluminum/Magnesium/Simethacone Susp 30 ML UDC PO PRN (11:49)
--- NOTE | 2017-09-27 14:15 | ED ---
HPI - Psych - General Source: patient Mode of arrival: ambulatory Limitations: no limitations - History of Present Illness MD complaint: suicidal ideation Onset (ago): week(s) Duration: constant History of same: Yes Context: significant life stressor Associated psychiatric symptoms: depression, suicidal ideation Associated symptoms: denies other symptoms If self harm: admits thoughts of self harm, has acted on plan - General Chief Complaint: Psychiatric Symptoms Stated Complaint: Vol Psy Time Seen by Provider: 09/27/17 11:42 - History of Present Illness HPI Narrative: This is a 46 year-old -Indian male who presents to this facility with suicidal ideation, stating that he drank bleach and took an OD of pills in an attempt to end his life. The emergency room physician placed him under a Black Act. He is well known to this facility and has been here twice this month prior to this visit. Reviewed electronic medical record, labs and discussed case with staff. Patient' s toxicology is positive for cocaine. He is evaluated in his room in J pod. Patient is found sleeping. Wakes to verbal stimuli. He is alert and oriented X4. His speech is clear, logical, and organized. His mood and affect are sad. He endorses suicidal ideation. Denies homicidal thoughts. Claims to have intermittent auditory derogatory/command hallucinations which tell him to kill himself. He claims that he sometimes sees his "mom and dad". He doesn't appear to be internally stimulated. There is no evidence of thought blocking. I can not elicit delusional material. Patient states that he is "stressed and everything". He reports to this provider that he alternately drank bleach, took pills, and vomited. He advises that he stays "with my cousin". He reports that he receives disability. He states that he smokes cigarettes, drinks alcohol occasionally and smokes "pot". He reports that his last suicide attempt was by OD approximately a year ago. He reports multiple inpatient admissions with diagnoses of schizoaffective and bipolar disorder. (Salome Naranjo) - Related Data Previous Rx's Medication Instructions Recorded carbamazepine 200 mg PO BID 30 Days #60 tab 09/19/17 quetiapine 600 mg PO HS 30 Days #90 tab 09/19/17 trihexyphenidyl 5 mg PO BID 30 Days #60 tab 09/19/17 Allergies Allergy/AdvReac Type Severity Reaction Status Date / Time levetiracetam Allergy Intermediate Nausea/Vomi Verified 09/24/17 13:09 ting penicillin G Allergy Mild SWELLING,IT Verified 09/24/17 13:09 ARLETH PMFSH - History History Provided By: Patient - Medical History Medical History: Medical History (Last Reviewed 09/27/17 @ 14:10 by AMIE Prieto) Borderline high cholesterol Mood disorder - Surgical History Surgical History: Surgical History (Last Reviewed 09/27/17 @ 14:10 by AMIE Prieto) H/O brain surgery - Tobacco History Second Hand Smoke Exposure: Yes Tobacco Use In Past 30 Days: Yes Smoking Status: Heavy tobacco smoker Tobacco Type: Cigarettes Packs Per Day: 0.5 Cigarettes Per Day: 10.0 - Alcohol History How Often Do You Have a Drink Containing Alcohol: 4 or more times a week - Substance Use History Substance History: Active Abuse - Travel History Recent Travel in the USA Within the Last 8 Weeks: No Recent Travel Out of the Country Within the Last 8 Weeks: No - Immunization History Tetanus Immunization: >5 Years Hx Influenza Vaccine This Season: No Psychiatric History - Psychiatric History Psychiatric Treatment History: History of Psychiatric Treatment History of Inpatient Treatment: Yes Firearms in Home: No - Psychiatric History Previous inpatient admissions with diagnoses of schizoaffective and bipolar disorder. (Salome Naranjo) - Legal History Previous incarcerations, longest three years for grand theft. Denies current. ( Salome Naranjo) Mental Status Examination Appearance: Disheveled Consciousness: Alert Orientation: x4 Motor Activity: Normal gait Speech: Unremarkable Language: Adequate Fund of Knowledge: Adequate Attention and Concentration: Adequate Memory: Unremarkable Mood: Sad Affect: Sad Thought Process & Associations: Intact Thought Content: Hallucinations Hallucination Type: Auditory, Command Delusion Type: None Suicidal Ideation: Yes Suicidal Plan: Yes Suicidal Intention: Yes Homicidal Ideation: No Homicidal Plan: No Homicidal Intention: No Insight: Poor Judgment: Impulsive Initial Documented Vital Signs Temperature 98.2 F 09/26/17 00:44 Pulse Rate 87 09/26/17 00:44 Respiratory Rate 18 09/26/17 00:44 Blood Pressure 121/65 09/26/17 00:44 Pulse Oximetry 100 09/26/17 00:44 Last Documented Vital Signs Temperature 98.3 F 09/27/17 05:32 Pulse Rate 95 H 09/27/17 11:44 Respiratory Rate 18 09/27/17 11:44 Blood Pressure 113/51 L 09/27/17 11:44 Pulse Oximetry 96 09/27/17 08:37 MDM - Psych - Diagnosis (1) Schizoaffective disorder, bipolar type Status: Acute - Lab Data Result diagrams: 09/26/17 02:10 09/26/17 02:10 - [facility] Narrative Medical decision making narrative: Given the patient's previous medical history and reported suicide attempt he will be admitted to a locked inpatient unit for further evaluation and treatment as deemed necessary. He has signed consent for his psychotropic medications. He will be admitted under the Black Act. (Salome Naranjo) - Lab Data Lab Results 09/26/17 09/26/17 09/26/17 Range/Units 02:10 02:10 02:10 WBC 7.8 (4.0-11.0) th/mm3 RBC 4.98 (4.50-5.90) mil/mm3 Hgb 15.5 (13.0-17.0) gm/dL Hct 43.5 (39.0-51.0) % MCV 87.3 (80.0-100.0) fL MCH 31.2 (27.0-34.0) pg MCHC 35.7 (32.0-36.0) % RDW 13.5 (11.6-17.2) % Plt Count 212 (150-450) th/mm3 MPV 9.1 (7.0-11.0) fL Neut % (Auto) 53.1 (16.0-70.0) % Lymph % (Auto) 33.2 (9.0-44.0) % Eagle % (Auto) 7.4 (0.0-8.0) % Eos % (Auto) 4.4 H (0.0-4.0) % Baso % (Auto) 1.9 (0.0-2.0) % Neut # (Auto) 4.2 (1.8-7.7) th/mm3 Lymph # (Auto) 2.6 (1.0-4.8) th/mm3 Eagle # (Auto) 0.6 (0.0-0.9) th/mm3 Eos # (Auto) 0.3 (0.0-0.4) th/mm3 Baso # (Auto) 0.2 (0.0-0.2) th/mm3 WBC Differential . Differential Comment Auto diff final Sodium 139 (136-145) meq/L Potassium 4.1 (3.5-5.1) meq/L Chloride 105 (98-107) meq/L Carbon Dioxide 28.3 (21.0-32.0) meq/L Anion Gap 6 (5-15) meq/L BUN 36 H (7-18) mg/dL Creatinine 1.46 H (0.60-1.30) mg/dL Estimated GFR 64 L (>89) mL/min Random Glucose 82 (74-106) mg/dL Calcium 8.0 L (8.5-10.1) mg/dL Total Bilirubin 0.4 (0.2-1.0) mg/dL AST 24 (15-37) U/L ALT 26 (12-78) U/L Alkaline Phosphatase 82 (45-117) U/L Total Protein 7.2 (6.4-8.2) g/dL Albumin 3.8 (3.4-5.0) g/dL Salicylates Less than 1.7 L (2.8-20.0) mg/dL Urine Opiates Screen (Neg) Acetaminophen Less than 2.0 L (10.0-30.0) mcg/mL Ur Barbiturates Screen (Neg) Carbamazepine 1.7 L (4.0-12.0) mcg/mL Ur Amphetamines Screen (Neg) U Benzodiazepines Scrn (Neg) Urine Cocaine Screen (Neg) U Cannabinoids Screen (Neg) Serum Alcohol Less than 3 (0-5) mg/dL 09/26/17 09/26/17 09/26/17 Range/Units 03:42 05:57 07:05 WBC (4.0-11.0) th/mm3 RBC (4.50-5.90) mil/mm3 Hgb (13.0-17.0) gm/dL Hct (39.0-51.0) % MCV (80.0-100.0) fL MCH (27.0-34.0) pg MCHC (32.0-36.0) % RDW (11.6-17.2) % Plt Count (150-450) th/mm3 MPV (7.0-11.0) fL Neut % (Auto) (16.0-70.0) % Lymph % (Auto) (9.0-44.0) % Eagle % (Auto) (0.0-8.0) % Eos % (Auto) (0.0-4.0) % Baso % (Auto) (0.0-2.0) % Neut # (Auto) (1.8-7.7) th/mm3 Lymph # (Auto) (1.0-4.8) th/mm3 Eagle # (Auto) (0.0-0.9) th/mm3 Eos # (Auto) (0.0-0.4) th/mm3 Baso # (Auto) (0.0-0.2) th/mm3 WBC Differential Differential Comment Sodium (136-145) meq/L Potassium (3.5-5.1) meq/L Chloride (98-107) meq/L Carbon Dioxide (21.0-32.0) meq/L Anion Gap (5-15) meq/L BUN (7-18) mg/dL Creatinine (0.60-1.30) mg/dL Estimated GFR (>89) mL/min Random Glucose (74-106) mg/dL Calcium (8.5-10.1) mg/dL Total Bilirubin (0.2-1.0) mg/dL AST (15-37) U/L ALT (12-78) U/L Alkaline Phosphatase (45-117) U/L Total Protein (6.4-8.2) g/dL Albumin (3.4-5.0) g/dL Salicylates (2.8-20.0) mg/dL Urine Opiates Screen Neg (Neg) Acetaminophen (10.0-30.0) mcg/mL Ur Barbiturates Screen Neg (Neg) Carbamazepine 1.6 L 1.6 L (4.0-12.0) mcg/mL Ur Amphetamines Screen Neg (Neg) U Benzodiazepines Scrn Neg (Neg) Urine Cocaine Screen Pos H (Neg) U Cannabinoids Screen Neg (Neg) Serum Alcohol (0-5) mg/dL
[2017-09-27] MEDS ORDERED: CARBAMAZEPINE 200 MG PO SCH (21:00)
--- NOTE | 2017-09-28 08:58 | P.HPPSY ---
Provisional Diagnosis Admission Date: September 27, 2017 11:59 [place].: 1. Schizoaffective disorder bipolar type 2. Cocaine use disorder, severe [place] II.: Deferred Competence Certification of Person's Competence To Provide Express and Informed Consent I have personally examined George Lloyd, a person being served at [facility] on, September 28, 2017 0858. Express and informed consent means consent voluntarily given in writing, by a competent person, after sufficient explanation and disclosure of the subject matter involved to enable the person to make a knowing and willful decision without any element of force, fraud, deceit, duress, or other form of constraint or coercion. This person is 18 years of age or older, is not now known to be incompetent to consent to treatment with a guardian advocate, and does not have a health care surrogate or proxy currently making medical treatment decisions. I have found this person to be one of the following: [X] Competent to provide express and informed consent, as defined above, for voluntary admission to this facility and is competent to provide express and informed consent for treatment. He/she has the consistent capacity to make well reasoned, willful, and knowing decisions concerning his or her medical or mental health treatment. The person fully and consistently understands the purpose of the admission for examination/placement and is fully capable of personally exercising all rights assured [place] [] Incompetent to provide express and informed consent to voluntary admission, and this is incompetent to provide express and informed consent to treatment. The person must be transferred to involuntary status and a petition for a guardian advocate filed with the Circuit Court. [] Refusing to provide express and informed consent to voluntary admission but is competent to provide express and informed consent for treatment. The person must be discharged or transferred to involuntary status. Form shall be completed within 24 hours of a person's arrival at the receiving facility and filed in the clinical record of each person: 1. Admitted on a voluntary basis 2. Permitted to provide express and informed consent to his/her own treatment 3. Allowed to transfer from involuntary to voluntary status 4. Prior to permitting a person to consent to his or her own treatment after having been previously found incompetent to consent to treatment. History of Present Illness Capacity: Has capacity Chief Complaint: Toxic ingestion History of Present Illness: Mr. Lloyd is a 46-year-old male with a history of schizoaffective disorder and cocaine use disorder who presented to the ED reporting toxic ingestion of bleach and Artane. He was placed under the Black act. He was evaluated by the psychiatric nurse practitioner in the ED. Reviewing the electronic medical record, I note that the patient was admitted most recently under Dr. Meyer, having been discharged a little over a week ago from the inpatient unit. Patient seen and examined with nurse, Evelio. Chart reviewed. Case discussed with nursing staff. On my examination today, the patient presents as withdrawn , anhedonic and dysphoric. He says that he was feeling stressed about "my whole surroundings. They were misunderstanding." He apparently had been staying with family members but is now homeless, and this may have been a stressor. He reports that he had also been off of his psychotropic medications for a few days and had been abusing cocaine. In the setting of all of the above , the patient decided to drink about a half a cup of bleach and take a handful of Artane. He is not particularly happy to have survived his overdose. He endorses ongoing suicidal ideation, although he has no specific plan and does contract for safety on the inpatient unit. Mood remains depressed. He endorses hopeless and worthless feelings. He says that he has been experiencing auditory hallucinations of "people out to get me." He occasionally has command auditory hallucinations to self injure. The patient is presently on the high acuity unit and a camera room. No homicidal ideation. Remainder of the psychiatric ROS is negative. Patient complains of left eye pain and says that he is supposed to be on clindamycin pills. Past psychiatric history: Patient has previous diagnoses as noted above. He follows psychiatrically at [facility]. Most recent psychiatric admission was here at [place]. He does report a history of multiple previous suicide attempts, mostly by toxic ingestion, at least a dozen he estimates. Family history: The patient reports that his brother struggles with similar psychiatric issues. There is no family history of suicide however. Chemical dependency history: The patient admits to abuse of powder cocaine. Social history: The patient is now homeless. He has a grade 11 education. He is disabled. He is single. He has 1 daughter. Denies any history. He is on probation for grand theft charges. He is adventism. No history of trauma. Denies access to guns or firearms. Past medical history: The patient has the left eye issue as noted above. Otherwise denies any past medical history. - Inpatient Certification I certify that the inpatient services were ordered in accordance with Medicare regulations governing the order. This includes certification that hospital inpatient services are reasonable and necessary and in the case of services not specified as inpatient-only under 42 CFR 419.22(n), that they are appropriately provided as inpatient services in accordance to with the 2-midnight benchmark under 43 CFR 412.3(e) I certify that inpatient psychiatric hospital services are medically necessary. Evaluation and treatment and/or diagnostic testing are expected to improve the patient's condition. The patient needs on a daily basis, active treatment furnished directly by or requiring the supervision of inpatient psychiatric facility personnel. Estimated Total Length of Stay (Days): 7 Plans for Post Hospital Care: Not yet determined Review of Systems All other systems reviewed negative except as stated in HPI [facility] - History History Provided By: Patient - Medical History Medical History: Medical History (Last Reviewed 09/27/17 @ 14:10 by AMIE Prieto) Borderline high cholesterol Mood disorder - Surgical History Surgical History: Surgical History (Last Reviewed 09/27/17 @ 14:10 by AMIE Prieto) H/O brain surgery - Tobacco History Second Hand Smoke Exposure: Yes Tobacco Use In Past 30 Days: Yes Smoking Status: Current every day smoker Tobacco Type: Cigarettes Packs Per Day: 0.5 Cigarettes Per Day: 10.0 - Alcohol History How Often Do You Have a Drink Containing Alcohol: Monthly or less - Substance Use History Substance History: No History of Abuse - Travel History Recent Travel in the [place] Within the Last 8 Weeks: No Recent Travel Out of the Country Within the Last 8 Weeks: No - Immunization History Tetanus Immunization: >5 Years Hx Influenza Vaccine This Season: No Quality Measures - Patient Strengths Patient's strengths (minimum of 2): In a monitored setting. Verbally fluent. Medications and Allergies Active Medications: Active Medications Al Hydrox/Mg Hydrox/Simethicone (Mag-Al Plus Susp Liq) 30 ml PO Q6H PRN PRN Reason: DYSPEPSIA Diphenhydramine HCl (Benadryl) 50 mg PO HS PRN PRN Reason: INSOMNIA Hydroxyzine HCl (Atarax) 50 mg PO Q6H PRN PRN Reason: ANXIETY Non-Formulary Medication (Carbamazepine [Carbamazepine]) 200 mg PO BID [facility] Quetiapine Fumarate (Seroquel) 600 mg PO [facility] Last Admin: 09/27/17 21:36 Dose: 600 mg Trihexyphenidyl HCl (Artane) 5 mg PO BID [facility] Last Admin: 09/27/17 21:36 Dose: 5 mg Allergies Allergy/AdvReac Type Severity Reaction Status Date / Time levetiracetam Allergy Intermediate Nausea/Vomi Verified 09/24/17 13:09 ting penicillin G Allergy Mild SWELLING,IT Verified 09/24/17 13:09 ARLETH Results - Labs CBC & Chem 7: 09/26/17 02:10 09/28/17 08:09 Labs: Labs reviewed. CBC unremarkable. CMP reveals somewhat decreased GFR. Toxicology positive for cocaine. EKG is normal sinus rhythm with a QTC of 420 ms, not prolonged. Exam Vital signs: Vital Signs 09/27/17 11:44 09/27/17 16:19 09/27/17 18:03 Temperature 98.2 F Pulse Rate 95 H Respiratory Rate 18 18 Blood Pressure 113/51 L 110/66 Pulse Oximetry 96 09/28/17 06:10 Temperature 97.7 F Pulse Rate 84 Respiratory Rate 16 Blood Pressure 105/59 L Pulse Oximetry 99 Intake & Output 09/27/17 09/28/17 09/28/17 18:59 06:59 18:59 Weight 79.2 kg Other: Weight On Admission 79.2 kg Narrative: Physical exam completed by ED provider. On my examination today, the patient appears to be in no acute physical distress. No motor abnormalities noted. Patient's left eye does indeed appear red, and there is some stitches in the superior aspect of the orbit. Labs and vital signs reviewed. Mental Status Examination Appearance: Disheveled Consciousness: Alert Orientation: x4 Motor Activity: Normal gait, Other (No motor abnormalities noted) Speech: Unremarkable Language: Adequate Fund of Knowledge: Adequate Attention and Concentration: Adequate Memory: Unremarkable Mood: Sad Affect: Sad Thought Process & Associations: Intact Thought Content: Hallucinations Hallucination Type: Auditory, Command Delusion Type: Paranoid Suicidal Ideation: Yes Suicidal Plan: No Suicidal Intention: No Homicidal Ideation: No Homicidal Plan: No Homicidal Intention: No Insight: Poor Judgment: Impulsive Assessment and Plan - Assessment (1) Schizoaffective disorder, bipolar type Code(s): F25.0 - Schizoaffective disorder, bipolar type Status: Acute (2) Cocaine use disorder, severe, dependence Code(s): F14.20 - Cocaine dependence, uncomplicated Status: Acute - Plan Plan: 46-year-old male with psychiatric history as detailed above who is presently admitted to the inpatient unit under a Black act. On my examination today, the patient endorses ongoing low mood and suicidal ideation along with command auditory hallucinations. He requires psychiatric admission for safety, observation and stabilization. I have strongly recommended to the patient that we adjust therapy to an antipsychotic agent with an available long-acting injectable as medication nonadherence was contributing to current presentation, but the patient insists, as I believe he has in the past, on returning to his previous psychotropic regimen noting that when he takes it, he does well on it. Substance use issues are also an obvious precipitant, although I fear his motivation to change his pattern of use is poor. Admit inpatient. Voluntary status. Resume prior to admission psychotropic regimen: Seroquel 600 mg at bedtime, Tegretol 200 mg twice daily, Artane 5 mg twice daily. Atarax as needed for anxiety. Benadryl as needed for sleep. R/B/ A for medications reviewed with patient. Plan to check a Tegretol level after the appropriate interval. Consult hospitalist for left eye pain/redness. Vitals every shift. Counselor to see. Disposition planning. Estimated length of stay: 5-7 days. Justification for Continued Inpatient Stay: Monitoring for impairment in safety Discharge Planning: Pending psychiatric stabilization
[2017-09-28 09:18] LABS: Calcium 8.4 mg/dL (8.5-10.1); Carbon Dioxide 24.2 meq/L (21.0-32.0); Chol/HDL Ratio 4.04 Ratio; HDL Cholesterol 43.5 mg/dL (40.0-60.0); Potassium 3.6 meq/L (3.5-5.1)
[2017-09-28] MEDS: carBAMazepine 200 MG Tablet PO SCH ×2 (11:10→21:39)
[2017-09-28] MEDS: Acetaminophen 325 MG Tablet PO PRN ×2 (14:08→21:39)
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
[2017-09-29] MEDS: carBAMazepine 200 MG Tablet PO SCH ×2 (08:53→21:05)
[2017-09-29 11:55] LABS: Hemoglobin A1c 4.9 % (4.3-6.0)
[2017-09-29] MEDS ORDERED: Hypromellose 0.3% Opth Gel 10 GM Bottle LEFT EYE PRN (13:19)
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
[2017-09-29] MEDS: Pantoprazole Sodium 20 MG DR Tablet PO SCH (15:06)
--- NOTE | 2017-09-29 16:29 | P.PNPSY ---
Subjective Chief Complaint: Toxic ingestion Remarks: Reviewed electronic medical records and discussed case with staff. Follow-up was conducted in his room He reports having auditory hallucinations "they are bad" however, he states that he would not act on them. He is very anxious. Nurse reports that he had to receive as needed Atarax early he reports that it did help with his anxiety. Mental Status Examination Appearance: Disheveled Consciousness: Alert Orientation: x4 Motor Activity: Normal gait, Other (No motor abnormalities noted) Speech: Unremarkable Language: Adequate Fund of Knowledge: Adequate Attention and Concentration: Adequate Memory: Unremarkable Mood: Sad Affect: Sad Thought Process & Associations: Intact Thought Content: Hallucinations Hallucination Type: Auditory, Command Delusion Type: Paranoid Suicidal Ideation: Yes Suicidal Plan: No Suicidal Intention: No Homicidal Ideation: No Homicidal Plan: No Homicidal Intention: No Insight: Poor Judgment: Impulsive Assessment and Plan - Assessment (1) Schizoaffective disorder, bipolar type Code(s): F25.0 - Schizoaffective disorder, bipolar type Status: Acute - Plan Plan: Patient will be reevaluated tomorrow by the attending psychiatrist. Continue with current treatment plan. Justification for Continued Inpatient Stay: Moving this patient to a less restrictive environment would likely result in decompensation.
[2017-09-29] MEDS: prednisoLONE Acetate 1% Opth Susp 5 ML Bottle LEFT EYE SCH ×2 (18:23→21:08)
[2017-09-30] MEDS: carBAMazepine 200 MG Tablet PO SCH ×2 (08:18→21:04)
[2017-09-30] MEDS: Pantoprazole Sodium 20 MG DR Tablet PO SCH (08:18)
[2017-09-30] MEDS: prednisoLONE Acetate 1% Opth Susp 5 ML Bottle LEFT EYE SCH ×4 (08:19→21:03)
--- NOTE | 2017-09-30 09:26 | P.PNPSY ---
Subjective Chief Complaint: Toxic ingestion Remarks: Patient seen and examined with nurse. Chart reviewed. Case discussed with nursing staff who reports patient is struggling with ongoing command auditory hallucinations to hurt himself. On my examination today, the patient says that he slept poorly overnight secondary to a nightmare of his girlfriend dying. He reports nightmares are typically not an issue for him. He endorses ongoing command auditory hallucinations to self injure and says that he is "scared I might do something to myself" if he were discharged. He remains on the high acuity unit in a camera room. He does contract for safety on the inpatient unit. Denies side effects from medications. Agreeable to addition of a daytime dose of Seroquel. He also notes that Celexa has been helpful in the past for mood. No physical complaints. Eye pain improving. Vital Signs Temp Pulse BP Pulse Ox 09/29/17 16:08 98.9 F 82 108/55 L 98 Laboratory Results - last 24 hr 09/28/17 08:09 Hemoglobin A1c 4.9 Labs reviewed Review of Systems All other systems reviewed negative except as stated in HPI Mental Status Examination Appearance: Appropriate Consciousness: Alert Orientation: x4 Motor Activity: Normal gait, Other (No abnormal motor movements noted) Speech: Unremarkable Language: Adequate Fund of Knowledge: Adequate Attention and Concentration: Adequate Memory: Unremarkable Mood: Sad Affect: Sad Thought Process & Associations: Intact Thought Content: Hallucinations Hallucination Type: Auditory, Command Delusion Type: None Suicidal Ideation: Yes Suicidal Plan: No Suicidal Intention: No Homicidal Ideation: No Homicidal Plan: No Homicidal Intention: No Insight: Fair Judgment: Impulsive Assessment and Plan - Assessment (1) Schizoaffective disorder, bipolar type Code(s): F25.0 - Schizoaffective disorder, bipolar type Status: Acute (2) Cocaine use disorder, severe, dependence Code(s): F14.20 - Cocaine dependence, uncomplicated Status: Acute - Plan Plan: Titrate Seroquel to 100 mg in the morning and 600 mg at bedtime. Continue carbamazepine as ordered with plans to obtain a carbamazepine level. To consider addition of Celexa for antidepressant effect. Continue to monitor on the inpatient unit. Hospitalist and ophthalmology input noted and appreciated. Continue other medications and care as ordered. Justification for Continued Inpatient Stay: Medication changes. High risk for decompensation in less restrictive environment. Concern for impairment in safety in less restrictive environment. Discharge Planning: Pending psychiatric stabilization Request Healthcare Surrogate/Guardian Advocate?: No
[2017-09-30] MEDS: QUEtiapine 100 MG Tablet PO SCH (10:29)
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
[2017-10-01] MEDS: Pantoprazole Sodium 20 MG DR Tablet PO SCH (09:04)
[2017-10-01] MEDS: carBAMazepine 200 MG Tablet PO SCH ×2 (09:04→20:40)
[2017-10-01] MEDS: QUEtiapine 100 MG Tablet PO SCH ×2 (09:04→09:11)
[2017-10-01] MEDS: prednisoLONE Acetate 1% Opth Susp 5 ML Bottle LEFT EYE SCH ×4 (09:05→20:40)
--- NOTE | 2017-10-01 10:49 | P.DSPSY ---
Psychiatry Discharge Summary Inpatient Psychiatric care?: Yes Advance Directives: No Mental Health Advance Directive: No Health Care Proxy: No - Admission Admission Date: September 27, 2017 11:59 - Admission Diagnosis (1) Schizoaffective disorder, bipolar type Code(s): F25.0 - Schizoaffective disorder, bipolar type (2) Cocaine use disorder, severe, dependence Code(s): F14.20 - Cocaine dependence, uncomplicated Brief History: Mr. Lloyd is a 46-year-old male with a history of schizoaffective disorder and cocaine use disorder who presented to the ED reporting toxic ingestion of bleach and Artane. He was placed under the Black act. He was evaluated by the psychiatric nurse practitioner in the ED. Reviewing the electronic medical record, I note that the patient was admitted most recently under Dr. Meyer, having been discharged a little over a week ago from the inpatient unit. Patient seen and examined with nurseEvelio. Chart reviewed. Case discussed with nursing staff. On my examination today, the patient presents as withdrawn , anhedonic and dysphoric. He says that he was feeling stressed about "my whole surroundings. They were misunderstanding." He apparently had been staying with family members but is now homeless, and this may have been a stressor. He reports that he had also been off of his psychotropic medications for a few days and had been abusing cocaine. In the setting of all of the above , the patient decided to drink about a half a cup of bleach and take a handful of Artane. He is not particularly happy to have survived his overdose. He endorses ongoing suicidal ideation, although he has no specific plan and does contract for safety on the inpatient unit. Mood remains depressed. He endorses hopeless and worthless feelings. He says that he has been experiencing auditory hallucinations of "people out to get me." He occasionally has command auditory hallucinations to self injure. The patient is presently on the high acuity unit and a camera room. No homicidal ideation. Remainder of the psychiatric ROS is negative. Patient complains of left eye pain and says that he is supposed to be on clindamycin pills. Past psychiatric history: Patient has previous diagnoses as noted above. He follows psychiatrically at [facility]. Most recent psychiatric admission was here at [facility]. He does report a history of multiple previous suicide attempts, mostly by toxic ingestion, at least a dozen he estimates. Family history: The patient reports that his brother struggles with similar psychiatric issues. There is no family history of suicide however. Chemical dependency history: The patient admits to abuse of powder cocaine. Social history: The patient is now homeless. He has a grade 11 education. He is disabled. He is single. He has 1 daughter. Denies any history. He is on probation for grand theft charges. He is [employer]. No history of trauma. Denies access to guns or firearms. Past medical history: The patient has the left eye issue as noted above. Otherwise denies any past medical history. Tobacco Use In Past 30 Days: Yes How Often Do You Have a Drink Containing Alcohol: Monthly or less Hospital Course: Patient was admitted to a locked, inpatient psychiatric unit. A general medical consultation was obtained. An ophthalmology consultation was obtained. Appropriate precautions were in place throughout patient's hospital stay. Patient was seen and examined on the unit by psychiatry and also visited by counselor. Psychotropic medications were adjusted. Patient tolerated medication changes well without side effects. Patient had improvement in presenting psychiatric symptomatology during the course of his hospital stay. There was no evidence of any suicidality or homicidality on the inpatient unit. There was no evidence of self-care deficit. With the assistance of the counselor, patient has been accepted at residential chemical dependency treatment facility. On my examination today: Patient seen and examined with nurse. Chart reviewed. Case discussed with nursing staff. No behavioral issues noted overnight. Case discussed in treatment team. In treatment team. Patient tells me that he is feeling much improved today and feels ready to leave the hospital to attend chemical dependency rehabilitation program. He views this as a good opportunity for him. He denies any suicidal or homicidal ideation, intent or plan and contracts for safety. I can elicit no depressive or hypomanic/manic symptoms. He denies any audiovisual hallucinations. In particular he has no command auditory hallucinations. He does not appear internally stimulated. No delusional material. There is no evidence of impairment in reality construction. He denies side effects from medications. ( Patient did decline morning dose of Seroquel this morning but tells me he plans to take it later in the day.) No physical complaints. Suicide and violence risk assessment on day of discharge both suggest lower imminent risk from mental illness as defined under the Black act, and patient's level of function is adequate for outpatient care. Patient's substance use is a chronic risk factor for harm to self/others, but it is hoped that the patient will gain assistance with this issue at residential chemical dependency treatment program. Patient has maximized benefit from this inpatient psychiatric hospital stay. He will be discharged early tomorrow morning in the predawn hours to residential treatment facility as required by that program. Psychiatric follow-up as arranged by counselor. Patient is also to follow up with primary care. I have supported the patient in his desire for abstinence from substances of abuse. I have counseled the patient to return to the psychiatric emergency room for any concerning symptoms as part of a general safety plan. - Discharge Discharge Date: 10/01/17 - Discharge Diagnosis (1) Schizoaffective disorder, bipolar type Diagnosis: Principal (stabilized) Code(s): F25.0 - Schizoaffective disorder, bipolar type Status: Acute (2) Cocaine use disorder, severe, dependence Diagnosis: Secondary Code(s): F14.20 - Cocaine dependence, uncomplicated Status: Acute Discharge Disposition: Residential chem dep treatment facility - Discharge Instructions Discharge Diet: Regular Diet Activities You Can Perform: Weight Bearing As Tolerat - Discharge Time <= 30 minutes Mental Status Examination Appearance: Appropriate Consciousness: Alert Orientation: x4 Motor Activity: Normal gait, Other (No motor abnormalities noted) Speech: Unremarkable Language: Adequate Fund of Knowledge: Adequate Attention and Concentration: Adequate Memory: Unremarkable Mood: Appropriate Affect: Appropriate Thought Process & Associations: Intact, Logical, Goal directed, Linear Thought Content: Appropriate Hallucination Type: None Delusion Type: None Suicidal Ideation: No Suicidal Plan: No Suicidal Intention: No Homicidal Ideation: No Homicidal Plan: No Homicidal Intention: No Mental Status Exam Remarks: Insight and judgment are fair. Discharge/Advance Care Plan - Results Vital Signs: Last Vital Signs Temp 98 F 10/01/17 05:58 Pulse 68 10/01/17 05:58 Resp 17 10/01/17 05:58 BP 102/59 L 10/01/17 05:58 Pulse Ox 97 10/01/17 05:58 Lab Results: Abnormal Lab Results 10/01/17 07:49 Carbamazepine 5.2 Laboratory Results Hemoglobin A1c 4.9 % (4.3-6.0) 09/28/17 08:09 Triglycerides 147 mg/dL (42-150) 09/28/17 08:09 Cholesterol 176 mg/dL (120-200) 09/28/17 08:09 LDL Cholesterol, Calc 103 mg/dL (0-99) H 09/28/17 08:09 HDL Cholesterol 43.5 mg/dL (40.0-60.0) 09/28/17 08:09 Summary of Procedures: None done Pending Results: None - Medications Number of antipsychotic medications at discharge: 1 - Discharge Care Plan Goals to Promote Your Health: * To prevent worsening of your condition and complications * To maintain your health at the optimal level Directions to Meet Your Goals: Take your medications as prescribed Follow your dietary instruction Follow activity as directed Keep your appointments as scheduled Take your immunizations and boosters as scheduled If your symptoms worsen call your PCP, if no PCP go to Urgent Care Center or Emergency Room For 01/10 questions related to your inpatient stay or results of tests pending at discharge, please contact Dr. Stephan Dewitt MD at Smoking is Dangerous to Your Health. Avoid second hand smoking
== END 2017-10-02 05:00 | disposition short-term general hospital (02) ==
LOC: NEPD 00:31 → H1EA 09-27 11:59 → NEDA 09-27 13:07 → H270 09-27 13:26
PROVIDERS: ADMIT Psychiatry & Neurology Psychiatry; ATTEND Psychiatry & Neurology Psychiatry

== ENCOUNTER 2018-01-02 02:35 | Inpatient (IN) ==
--- NOTE | 2018-01-02 03:25 | ED ---
HPI General Chief complaint: Psychiatric Symptoms Stated complaint: Vol Psy Time Seen by Provider: 01/02/18 03:22 History of Present Illness HPI narrative: 47-year-old male with history of schizoaffective disorder presents voluntarily requesting psychiatric evaluation. He reports that for 4 weeks he has been having passive suicidal thoughts, auditory hallucinations. Symptoms are moderate, aggravated by lack of medications. He reports that he recently ran out of his Seroquel, Haldol, Artane and Tegretol. He denies any specific suicidal plans. He denies any drug or alcohol use. He has no medical complaints at this time. Related Data Home Medications Medication Instructions Recorded Confirmed Haldol 01/02/18 carbamazepine [Tegretol] 200 mg PO BID 01/02/18 01/02/18 quetiapine [Seroquel] 600 mg PO BID 01/02/18 01/02/18 trihexyphenidyl 5 mg PO BID 01/02/18 01/02/18 Allergies Allergy/AdvReac Type Severity Reaction Status Date / Time penicillin G Allergy Mild SWELLING,IT Verified 01/02/18 03:09 ARLETH Review of Systems ROS: all other systems reviewed are negative [facility] Medical History Medical History Bipolar 1 disorder (Acute) Schizophrenia (Acute) Borderline high cholesterol (Acute) Mood disorder (Acute) Surgical History Surgical History H/O brain surgery (Acute) Social History Social History Substance History: No History of Abuse Second Hand Smoke Exposure: Yes Smoking Status: Current every day smoker Tobacco Type: Cigarettes Packs Per Day: 0.5 Cigarettes Per Day: 10.0 How Often Do You Have a Drink Containing Alcohol: Monthly or less Recent Travel in [facility] within the Last 8 Weeks: No Recent Out of Country Travel within the Last 8 Weeks: No Immunization History Tetanus Immunization: Unsure Exam Narrative Exam Narrative: GENERAL: Well-developed well-nourished male in no acute distress SKIN: Warm and dry. HEAD: Atraumatic. Normocephalic. EYES: Pupils equal and round. No scleral icterus. No injection or drainage. ENT: No nasal bleeding or discharge. Mucous membranes pink and moist. NECK: Trachea midline. No JVD. CARDIOVASCULAR: Regular rate and rhythm. No murmur appreciated. RESPIRATORY: No accessory muscle use. Clear to auscultation. Breath sounds equal bilaterally. GASTROINTESTINAL: Abdomen soft, non-tender, nondistended. Hepatic and splenic margins not palpable. MUSCULOSKELETAL: No obvious deformities. No clubbing. No cyanosis. No edema. NEUROLOGICAL: Awake and alert. No obvious cranial nerve deficits. Motor grossly within normal limits. Normal speech. PSYCHIATRIC: Restless, anxious. Insight and judgment normal. Course Initial Documented Vital Signs Temperature 97.5 F L 01/02/18 03:09 Pulse Rate 80 01/02/18 03:09 Respiratory Rate 14 01/02/18 03:09 Blood Pressure 118/67 01/02/18 03:09 Pulse Oximetry 97 01/02/18 03:09 Last Documented Vital Signs Temperature 97.5 F L 01/02/18 03:09 Pulse Rate 80 01/02/18 03:09 Respiratory Rate 14 01/02/18 03:09 Blood Pressure 118/67 01/02/18 03:09 Pulse Oximetry 97 01/02/18 03:09 Medical Decision Making MDM Narrative Medical decision making narrative: Mental health screening discussed with the patient. Psychiatric screen ordered. Lab work has been reviewed. He is medically cleared for psychiatric disposition. Medical Screen Exam Complete: Yes Emergency Medical Condition: Yes Differential Diagnosis Differential Diagnosis: schizophrenia, acute psychosis, substance-induced mood disorder, Medication noncompliance, schizoaffective disorder Lab Data Result diagrams: 01/02/18 03:25 01/02/18 03:25 Lab Results 01/02/18 01/02/18 01/02/18 Range/Units 03:25 03:25 03:25 WBC 6.0 (4.0-11.0) th/mm3 RBC 4.78 (4.50-5.90) mil/mm3 Hgb 14.5 (13.0-17.0) gm/dL Hct 43.2 (39.0-51.0) % MCV 90.4 (80.0-100.0) fL MCH 30.4 (27.0-34.0) pg MCHC 33.6 (32.0-36.0) % RDW 13.3 (11.6-17.2) % Plt Count 222 (150-450) th/mm3 MPV 8.6 (7.0-11.0) fL Neut % (Auto) 52.5 (16.0-70.0) % Lymph % (Auto) 37.6 (9.0-44.0) % Upson % (Auto) 6.6 (0.0-8.0) % Eos % (Auto) 2.4 (0.0-4.0) % Baso % (Auto) 0.9 (0.0-2.0) % Neut # (Auto) 3.1 (1.8-7.7) th/mm3 Lymph # (Auto) 2.3 (1.0-4.8) th/mm3 Upson # (Auto) 0.4 (0.0-0.9) th/mm3 Eos # (Auto) 0.1 (0.0-0.4) th/mm3 Baso # (Auto) 0.1 (0.0-0.2) th/mm3 WBC Differential . Differential Comment Auto diff final Sodium 141 (136-145) meq/L Potassium 3.5 (3.5-5.1) meq/L Chloride 106 (98-107) meq/L Carbon Dioxide 24.0 (21.0-32.0) meq/L Anion Gap 11 (5-15) meq/L BUN 8 (7-18) mg/dL Creatinine 1.11 (0.60-1.30) mg/dL Estimated GFR 87 L (>89) mL/min Random Glucose 80 (74-106) mg/dL Calcium 8.0 L (8.5-10.1) mg/dL Magnesium 2.3 (1.5-2.5) mg/dL Total Bilirubin 0.3 (0.2-1.0) mg/dL AST 47 H (15-37) U/L ALT 33 (12-78) U/L Alkaline Phosphatase 64 (45-117) U/L Total Protein 7.0 (6.4-8.2) g/dL Albumin 3.8 (3.4-5.0) g/dL TSH 0.802 (0.358-3.740) uIU/mL Salicylates Less than 1.7 L (2.8-20.0) mg/dL Urine Opiates Screen (Neg) Acetaminophen Less than 2.0 L (10.0-30.0) mcg/mL Ur Barbiturates Screen (Neg) Ur Amphetamines Screen (Neg) U Benzodiazepines Scrn (Neg) Urine Cocaine Screen (Neg) U Cannabinoids Screen (Neg) Serum Alcohol 73 H (0-5) mg/dL 01/02/18 Range/Units 03:25 WBC (4.0-11.0) th/mm3 RBC (4.50-5.90) mil/mm3 Hgb (13.0-17.0) gm/dL Hct (39.0-51.0) % MCV (80.0-100.0) fL MCH (27.0-34.0) pg MCHC (32.0-36.0) % RDW (11.6-17.2) % Plt Count (150-450) th/mm3 MPV (7.0-11.0) fL Neut % (Auto) (16.0-70.0) % Lymph % (Auto) (9.0-44.0) % Upson % (Auto) (0.0-8.0) % Eos % (Auto) (0.0-4.0) % Baso % (Auto) (0.0-2.0) % Neut # (Auto) (1.8-7.7) th/mm3 Lymph # (Auto) (1.0-4.8) th/mm3 Upson # (Auto) (0.0-0.9) th/mm3 Eos # (Auto) (0.0-0.4) th/mm3 Baso # (Auto) (0.0-0.2) th/mm3 WBC Differential Differential Comment Sodium (136-145) meq/L Potassium (3.5-5.1) meq/L Chloride (98-107) meq/L Carbon Dioxide (21.0-32.0) meq/L Anion Gap (5-15) meq/L BUN (7-18) mg/dL Creatinine (0.60-1.30) mg/dL Estimated GFR (>89) mL/min Random Glucose (74-106) mg/dL Calcium (8.5-10.1) mg/dL Magnesium (1.5-2.5) mg/dL Total Bilirubin (0.2-1.0) mg/dL AST (15-37) U/L ALT (12-78) U/L Alkaline Phosphatase (45-117) U/L Total Protein (6.4-8.2) g/dL Albumin (3.4-5.0) g/dL TSH (0.358-3.740) uIU/mL Salicylates (2.8-20.0) mg/dL Urine Opiates Screen Neg (Neg) Acetaminophen (10.0-30.0) mcg/mL Ur Barbiturates Screen Neg (Neg) Ur Amphetamines Screen Neg (Neg) U Benzodiazepines Scrn Neg (Neg) Urine Cocaine Screen Pos H (Neg) U Cannabinoids Screen Neg (Neg) Serum Alcohol (0-5) mg/dL Discharge Plan Discharge Disposition Patient Disposition: 30 Still Patient Discharge Condition Condition: Stable Discharge Details Diagnosis: Encounter for medical clearance for patient hold Physicians Team ED Provider: Luke Rand ED Midlevel Provider: Freddie Drew Primary Care Provider: Zach Boothe Rxs /Orders / Referrals /Forms Prescriptions: No Action carbamazepine [Tegretol] 200 mg Tablet 200 mg PO BID RF: 0 trihexyphenidyl 5 mg Tablet 5 mg PO BID RF: 0 quetiapine [Seroquel] 400 mg Tablet 600 mg PO BID RF: 0 Haldol RF: 0 Status ED Status: Medically Cleared
[2018-01-02 03:44] LABS: Baso # (Auto) 0.1 th/mm3 (0.0-0.2); Baso % (Auto) 0.9 % (0.0-2.0); Eos # (Auto) 0.1 th/mm3 (0.0-0.4); Eos % (Auto) 2.4 % (0.0-4.0); Hematocrit 43.2 % (39.0-51.0); Hemoglobin 14.5 gm/dL (13.0-17.0); Lymph # (Auto) 2.3 th/mm3 (1.0-4.8); Lymph % (Auto) 37.6 % (9.0-44.0); Mean Corpuscular HGB Conc 33.6 % (32.0-36.0); Mean Corpuscular Hemoglobin 30.4 pg (27.0-34.0); Mean Corpuscular Volume 90.4 fL (80.0-100.0); Mean Platelet Volume 8.6 fL (7.0-11.0); Mono # (Auto) 0.4 th/mm3 (0.0-0.9); Mono % (Auto) 6.6 % (0.0-8.0); Neut # (Auto) 3.1 th/mm3 (1.8-7.7); Neut % (Auto) 52.5 % (16.0-70.0); Platelet Count 222 th/mm3 (150-450); Red Blood Count 4.78 mil/mm3 (4.50-5.90); Red Cell Distribution Width 13.3 % (11.6-17.2)
[2018-01-02 04:06] LABS: Alanine Aminotransferase 33 U/L (12-78); Albumin 3.8 g/dL (3.4-5.0); Anion Gap 11 meq/L (5-15); Aspartate Aminotransferase 47 U/L (15-37); Blood Urea Nitrogen 8 mg/dL (7-18); Chloride 106 meq/L (98-107); Glomerular Filtration Rate 87 mL/min (>89); Glucose,Random 80 mg/dL (74-106); Magnesium 2.3 mg/dL (1.5-2.5); Potassium 3.5 meq/L (3.5-5.1); Sodium 141 meq/L (136-145)
[2018-01-02 04:07] LABS: Alcohol 73 mg/dL (0-5)
[2018-01-02 04:10] LABS: Amphetamine Screen,Urine Neg (Neg); Barbiturate Screen,Urine Neg (Neg); Cannabinoid Screen,Urine Neg (Neg); Cocaine Screen,Urine Pos (Neg)
[2018-01-02 04:13] LABS: Opiate Screen,Urine Neg (Neg)
[2018-01-02 04:15] LABS: Alkaline Phosphatase 64 U/L (45-117); Thyroid Stimulating Hormone 0.802 uIU/mL (0.358-3.740)
[2018-01-03] MEDS ORDERED: Bisacodyl 10 MG Supp RECTAL PRN (09:52)
[2018-01-03] MEDS: carBAMazepine 200 MG Tablet PO SCH ×2 (12:30→21:26)
--- NOTE | 2018-01-03 14:36 | P.HPPSY ---
Provisional Diagnosis Admission Date: January 03, 2018 10:23 Butler I.: Schizoaffective disorder, rule out substance-induced psychosis, cocaine and alcohol use disorder, rule out malingering Competence Certification of Person's Competence To Provide Express and Informed Consent I have personally examined George Lloyd, a person being served at [facility] on, January 03, 2018 1430. Express and informed consent means consent voluntarily given in writing, by a competent person, after sufficient explanation and disclosure of the subject matter involved to enable the person to make a knowing and willful decision without any element of force, fraud, deceit, duress, or other form of constraint or coercion. This person is 18 years of age or older, is not now known to be incompetent to consent to treatment with a guardian advocate, and does not have a health care surrogate or proxy currently making medical treatment decisions. I have found this person to be one of the following: [x] Competent to provide express and informed consent, as defined above, for voluntary admission to this facility and is competent to provide express and informed consent for treatment. He/she has the consistent capacity to make well reasoned, willful, and knowing decisions concerning his or her medical or mental health treatment. The person fully and consistently understands the purpose of the admission for examination/placement and is fully capable of personally exercising all rights assured [place] Incompetent to provide express and informed consent to voluntary admission, and this is incompetent to provide express and informed consent to treatment. The person must be transferred to involuntary status and a petition for a guardian advocate filed with the Circuit Court. [] Refusing to provide express and informed consent to voluntary admission but is competent to provide express and informed consent for treatment. The person must be discharged or transferred to involuntary status. Form shall be completed within 24 hours of a person's arrival at the receiving facility and filed in the clinical record of each person: 1. Admitted on a voluntary basis 2. Permitted to provide express and informed consent to his/her own treatment 3. Allowed to transfer from involuntary to voluntary status 4. Prior to permitting a person to consent to his or her own treatment after having been previously found incompetent to consent to treatment. History of Present Illness Capacity: Has capacity History of Present Illness: The patient is a 47-year-old -[place] man, domiciled in [place], single , unemployed, supported by [facility], with a psychiatric history of schizoaffective disorder, cocaine and alcohol use disorder, multiple psychiatric hospitalizations, the last hospitalization was about 3 months ago here in [place], history of suicidal attempts by OD, self-cutting behavior, is currently in Seroquel 400 mg, carbamazepine 200 mg twice daily, Artane 5 mg, outpatient care in [facility], medical history of asthma, who presents voluntarily requesting psychiatric evaluation. The patient reports that he came because he needs to restart his psychotropics, he lost his appointment in [facility] about a month ago and since then he has not been taking his medications, he has been using cocaine and alcohol quite often and he has not been feeling stable in the last days. He reports that for 4 weeks he has been having passive suicidal thoughts, auditory hallucinations of voices telling him to kill himself. However, in the last week, these voices has been increasing in intensity and frequency. The patient says that for this reason he has been feeling very depressed, and having suicidal thoughts. The patient is fully oriented x3, he is logical, coherent and relevant. The patient does not seem to be intoxicated , he denies symptoms of withdrawal at the moment PPHx: schizoaffective disorder, cocaine and alcohol use disorder, multiple psychiatric hospitalizations, the last hospitalization was about 3 months ago here in [place], history of suicidal attempts by OD, self-cutting behavior. The patient is on Seroquel 400 mg, carbamazepine 200 mg twice daily, Artane 5 mg PMHx: Asthma, hypercholesterolemia Family Hx: Brother with bipolar disorder Substance Hx: Almost daily use of alcohol and cocaine Social Hx: Patient was born and raised in [place], he lives with a friend in [place], single, unemployed, supported by [facility] - Inpatient Certification I certify that the inpatient services were ordered in accordance with Medicare regulations governing the order. This includes certification that hospital inpatient services are reasonable and necessary and in the case of services not specified as inpatient-only under 42 CFR 419.22(n), that they are appropriately provided as inpatient services in accordance to with the 2-midnight benchmark under 43 CFR 412.3(e) I certify that inpatient psychiatric hospital services are medically necessary. Evaluation and treatment and/or diagnostic testing are expected to improve the patient's condition. The patient needs on a daily basis, active treatment furnished directly by or requiring the supervision of inpatient psychiatric facility personnel. Estimated Total Length of Stay (Days): 7 Plans for Post Hospital Care: Home Review of Systems All other systems reviewed negative except as stated in HPI Psychiatric: Reports paranoia, Reports sensing things others do not sense, Reports thoughts of hurting/killing yourself [facility] - History History Provided By: Patient - Medical History Medical History: Medical History (Last Updated 01/02/18 @ 03:11 by Kami Vicente) Bipolar 1 disorder Schizophrenia Borderline high cholesterol Mood disorder - Surgical History Surgical History: Surgical History (Last Reviewed 01/02/18 @ 03:11 by Kami Vicente) H/O brain surgery - Family History Family History: Family History (Last Reviewed 09/29/17 @ 14:40 by AMIE Sepulveda) Brother Mood disorder - Tobacco History Second Hand Smoke Exposure: Yes Tobacco Use In Past 30 Days: Yes Smoking Status: Current every day smoker Tobacco Type: Cigarettes Packs Per Day: 0.5 Cigarettes Per Day: 10.0 - Alcohol History How Often Do You Have a Drink Containing Alcohol: Monthly or less - Substance Use History Substance History: Active Abuse - Substance Use Type Alcohol Status: Active Route Used: By Mouth Frequency: 2 beers 2x/month Last Used: unsure Reason for Use: Feels Good - Travel History Recent Travel in the [place] Within the Last 8 Weeks: No Recent Travel Out of the Country Within the Last 8 Weeks: No - Immunization History Tetanus Immunization: Unsure Medications and Allergies Active Medications: Active Medications Al Hydrox/Mg Hydrox/Simethicone (Mag-Al Plus Susp Liq) 30 ml PO Q6H PRN PRN Reason: DYSPEPSIA Al Hydroxide/Mg Hydroxide (Milk Of Magnesia Liq) 30 ml PO Q12H PRN PRN Reason: Mild Constipation Bisacodyl (Dulcolax Supp) 10 mg RECTAL DAILY PRN PRN Reason: SEVERE CONSITIPATION Carbamazepine (Tegretol) 100 mg PO BID [facility] Last Admin: 01/03/18 12:30 Dose: Not Given Lactulose (Lactulose Liq) 30 ml PO DAILY PRN PRN Reason: SEVERE CONSITIPATION Quetiapine Fumarate (Seroquel) 300 mg PO BID [facility] Last Admin: 01/03/18 12:30 Dose: Not Given Senna/Docusate Sodium (Kimberlyn-Colace) 1 tab PO BID [facility] Sennosides (Senokot) 17.2 mg PO Q12H PRN PRN Reason: Moderate Constipation Trihexyphenidyl HCl (Artane) 5 mg PO BID [facility] Last Admin: 01/03/18 12:30 Dose: Not Given Allergies Allergy/AdvReac Type Severity Reaction Status Date / Time penicillin G Allergy Mild SWELLING,IT Verified 01/02/18 03:09 [facility] Home Medications Medication Instructions Recorded Confirmed Type Haldol 01/02/18 History carbamazepine [Tegretol] 200 mg PO BID 01/02/18 01/02/18 History quetiapine [Seroquel] 600 mg PO BID 01/02/18 01/02/18 History trihexyphenidyl 5 mg PO BID 01/02/18 01/02/18 History Results - Labs CBC & Chem 7: 01/02/18 03:25 01/02/18 03:25 Exam Vital signs: Vital Signs 01/02/18 18:45 01/02/18 22:32 01/03/18 05:38 Temperature 96.4 F L 98.1 F 98.6 F Pulse Rate 74 62 66 Respiratory Rate 18 18 16 Blood Pressure 118/77 103/61 96/64 L Pulse Oximetry 100 98 99 Narrative: No catatonia, no tremors, no EPS, no withdrawal symptoms, no psychomotor agitation or retardation, no gait disturbance - Constitutional no acute distress - Routine HEENT Exam Head: Present: normocephalic, atraumatic Eye: Present: EOMI, PERRL ENT: Present: mucous membranes moist Mental Status Examination Appearance: Disheveled Consciousness: Alert Orientation: x4 Motor Activity: Normal gait Speech: Unremarkable Language: Adequate Fund of Knowledge: Adequate Attention and Concentration: Adequate Memory: Unremarkable Mood: Irritable Affect: Irritable Thought Process & Associations: Intact Thought Content: Hallucinations Hallucination Type: Auditory Delusion Type: Paranoid Suicidal Ideation: Yes Suicidal Plan: No Suicidal Intention: No Homicidal Ideation: No Homicidal Plan: No Homicidal Intention: No Insight: Poor Judgment: Poor Assessment and Plan - Assessment (1) Schizoaffective disorder, bipolar type Code(s): F25.0 - Schizoaffective disorder, bipolar type Status: Acute - Plan Plan: On my psychiatric evaluation today the patient presents with reported suicidal ideation with a plan of overdosing as well as commanding type auditory hallucinations of voices telling him to kill himself, voices that has been increased in the last 5 days in severity, volume and intensity in the context of noncompliant with psychotropics and increased use of alcohol and cocaine. The patient has a psychiatric history of schizoaffective disorder, multiple psychiatric admissions, suicidal attempts, he is supposed to be on Seroquel 400 mg and carbamazepine 200 mg twice daily, but the patient has not been taking his medications for the last month. At this moment the patient has an increased risk of danger to self and others. He would be admitted in psychiatry to restart his medications. I will restart Seroquel at 200 mg at bedtime, carbamazepine 100 mg twice daily, Artane 5 mg daily. I also will order CIWA protocol to avoid alcohol withdrawal. Support, motivational psychoeducation provided. The patient will be transferred to [address]00 unit. Justification for Continued Inpatient Stay: To be admitted
[2018-01-03] MEDS: Senna/Docusate Sodium 8.6/50 MG Tablet PO SCH (21:27)
[2018-01-04 07:38] LABS: Calcium 8.1 mg/dL (8.5-10.1); Carbon Dioxide 26.6 meq/L (21.0-32.0); Potassium 3.3 meq/L (3.5-5.1)
[2018-01-04 07:42] LABS: Chol/HDL Ratio 3.97 Ratio; HDL Cholesterol 31.7 mg/dL (40.0-60.0)
[2018-01-04] MEDS: carBAMazepine 200 MG Tablet PO SCH ×2 (08:30→21:10)
[2018-01-04] MEDS: Senna/Docusate Sodium 8.6/50 MG Tablet PO SCH ×2 (08:31→21:10)
[2018-01-04] MEDS: Aluminum/Magnesium/Simethacone Susp 30 ML UDC PO PRN (08:34)
[2018-01-04] MEDS ORDERED: LORazepam 1 MG Tablet PO PRN (14:52)
[2018-01-04] MEDS ORDERED: Haloperidol Inj 5 MG/ML Ampul IV.PUSH PRN (14:52)
--- NOTE | 2018-01-04 14:52 | P.PNPSY ---
Subjective Remarks: Patient seen and examined with nurse in weekend coverage. Chart reviewed. Case discussed with nursing staff who reports patient is continuing to articulate suicidal ideation with no plan. On my examination today, the patient endorses suicidal ideation but contracts for safety on the inpatient unit. He has no specific plan or suicidal intent. He endorses visual hallucinations of "shadows." Patient refused morning dose of Seroquel. He reports that home doses of carbamazepine and Seroquel are as follows: Carbamazepine 100 mg in the morning and 200 mg at bedtime, Seroquel 100 mg in the morning and 300 mg at bedtime. He would like to return to these doses of medications. No side effects from medications. No physical complaints. Vital Signs Temp Pulse Resp BP Pulse Ox 01/04/18 05:36 98 F 58 L 17 92/50 L 01/03/18 16:52 98.2 F 82 16 134/74 99 Intake and Output 01/03/18 01/04/18 01/04/18 22:59 06:59 14:59 Other: Date of Last Bowel Movement 01/03/18 Weight 90.718 kg Weight On Admission 90.718 kg Laboratory Results - last 24 hr 01/04/18 01/04/18 05:50 05:50 Sodium 142 Potassium 3.3 L Chloride 109 H Carbon Dioxide 26.6 Anion Gap 6 BUN 16 Creatinine 1.11 Estimated GFR 87 L Random Glucose 86 Hemoglobin A1c 5.0 Calcium 8.1 L Triglycerides 267 H Cholesterol 126 LDL Cholesterol, Calc 41 HDL Cholesterol 31.7 L Cholesterol/HDL Ratio 3.97 Labs reviewed. Hypokalemia noted. Repleted. Review of Systems All other systems reviewed negative except as stated in HPI Mental Status Examination Appearance: Appropriate Consciousness: Alert Orientation: Person, Place (At least) Motor Activity: Other (No motor abnormalities noted) Speech: Unremarkable Language: Adequate Fund of Knowledge: Adequate Attention and Concentration: Adequate Memory: Unremarkable (Grossly intact on clinical exam) Mood: Appropriate Affect: Blunt Thought Process & Associations: Intact Thought Content: Hallucinations Hallucination Type: Visual (Does not appear internally preoccupied) Delusion Type: None Suicidal Ideation: Yes Suicidal Plan: No Suicidal Intention: No (Contracts for safety on inpatient unit) Homicidal Ideation: No Homicidal Plan: No Homicidal Intention: No Insight: Fair Judgment: Impulsive Assessment and Plan - Assessment (1) Schizoaffective disorder, bipolar type Code(s): F25.0 - Schizoaffective disorder, bipolar type Status: Acute (2) Cocaine use disorder, severe, dependence Code(s): F14.20 - Cocaine dependence, uncomplicated Status: Acute - Plan Plan: Adjust Seroquel and carbamazepine dosing per patient preference. Seroquel 100 mg in the morning and 300 mg at bedtime. Carbamazepine 100 mg in the morning and 200 mg at bedtime. Replete potassium and recheck BMP and magnesium in the morning. Continue other medications and care as ordered. Consider secondary gain versus substance-induced psychosis. Justification for Continued Inpatient Stay: Medication changes. Discharge Planning: Pending stabilization Request Healthcare Surrogate/Guardian Advocate?: No
[2018-01-04 17:59] VITALS: RESP 16
[2018-01-05] MEDS: Folic Acid 1 MG Tablet PO SCH (08:46)
[2018-01-05] MEDS: carBAMazepine 200 MG Tablet PO SCH ×2 (08:47→21:30)
[2018-01-05] MEDS: Multivitamin/Minerals Therapeutic Tablet PO SCH (08:47)
[2018-01-05] MEDS: Senna/Docusate Sodium 8.6/50 MG Tablet PO SCH ×2 (08:47→21:31)
[2018-01-05] MEDS ORDERED: QUEtiapine 100 MG Tablet PO SCH (09:00)
[2018-01-05] MEDS: Aluminum/Magnesium/Simethacone Susp 30 ML UDC PO PRN (11:21)
--- NOTE | 2018-01-05 13:08 | P.PNPSY ---
Subjective Remarks: Chart reviewed and discussed with nursing staff. Patient in common area watching television. He is very sleepy. He states he sleeps through the night. He feels that his current medications are helpful. Denies AVH, Denies SI/HI. Last Mg on 01/04 was 2.3 and last K+ on 01/04 was 3.3. Patient has an order for repeat K+ and Mg+ on 01/05/18. Review of Systems All other systems reviewed negative except as stated in HPI Mental Status Examination Appearance: Appropriate Consciousness: Alert Orientation: Person, Place (At least) Motor Activity: Other (No motor abnormalities noted) Speech: Unremarkable Language: Adequate Fund of Knowledge: Adequate Attention and Concentration: Adequate Memory: Unremarkable (Grossly intact on clinical exam) Mood: Appropriate Affect: Blunt Thought Process & Associations: Intact Thought Content: Hallucinations Hallucination Type: None Delusion Type: None Suicidal Ideation: No Suicidal Plan: No Suicidal Intention: No (Contracts for safety on inpatient unit) Homicidal Ideation: No Homicidal Plan: No Homicidal Intention: No Insight: Fair Judgment: Impulsive Assessment and Plan - Assessment (1) Schizoaffective disorder, bipolar type Code(s): F25.0 - Schizoaffective disorder, bipolar type Status: Acute (2) Cocaine use disorder, severe, dependence Code(s): F14.20 - Cocaine dependence, uncomplicated Status: Acute - Plan Plan: Continue current treatment plan. Justification for Continued Inpatient Stay: Moving patient to a less restrictive environment may result in his decompensation. Request Healthcare Surrogate/Guardian Advocate?: No
[2018-01-05 14:22] LABS: Anion Gap 7 meq/L (5-15); Blood Urea Nitrogen 13 mg/dL (7-18); Calcium 8.6 mg/dL (8.5-10.1); Carbon Dioxide 31.1 meq/L (21.0-32.0); Chloride 105 meq/L (98-107); Glomerular Filtration Rate Greater Than 89 mL/min (>89); Glucose,Random 51 mg/dL (74-106); Magnesium 2.2 mg/dL (1.5-2.5); Potassium 3.9 meq/L (3.5-5.1); Sodium 143 meq/L (136-145)
[2018-01-05] MEDS: Acetaminophen 325 MG Tablet PO PRN (21:29)
[2018-01-06] MEDS: Multivitamin/Minerals Therapeutic Tablet PO SCH (08:38)
[2018-01-06] MEDS: Folic Acid 1 MG Tablet PO SCH (08:39)
[2018-01-06] MEDS: Senna/Docusate Sodium 8.6/50 MG Tablet PO SCH ×2 (08:39→21:16)
[2018-01-06] MEDS: carBAMazepine 200 MG Tablet PO SCH ×2 (08:43→21:18)
--- NOTE | 2018-01-06 11:05 | P.PNPSY ---
Subjective Remarks: Patient seen and examined with nurse. Chart reviewed. Case discussed with nursing staff. Patient reportedly refused Seroquel this morning saying it was too sedating. On my examination today, the patient says that he finds the Seroquel helpful for his psychotic symptoms but does indeed find the daytime dose excessively sedating. We discuss options for management of this problem including consolidation of Seroquel dose to bedtime (we could prescribe XR formulation on discharge, and patient notes he has done well with this form before, but it is not on our formulary inpatient). We also discuss the possibility of switching to a different, less sedating antipsychotic. Patient prefers to consolidate the Seroquel to HS. no other side effects from medications. No physical complaints. Vital Signs Temp Pulse Resp BP Pulse Ox 01/06/18 05:03 97.6 F 64 16 102/56 L 98 01/05/18 17:05 98.6 F 77 16 122/73 98 Intake and Output 01/05/18 01/06/18 01/06/18 22:59 06:59 14:59 Other: Date of Last Bowel Movement 01/04/18 Weight 83.3 kg Labs reviewed. No new labs. Review of Systems All other systems reviewed negative except as stated in HPI Mental Status Examination Appearance: Appropriate Consciousness: Alert Orientation: Person, Place (At least) Motor Activity: Other (No abnormal motor movements noted) Speech: Unremarkable Language: Adequate Fund of Knowledge: Adequate Attention and Concentration: Adequate Memory: Unremarkable (Grossly intact on clinical exam) Mood: Appropriate Affect: Blunt Thought Process & Associations: Intact Thought Content: Appropriate Hallucination Type: None Delusion Type: None Suicidal Ideation: No Suicidal Plan: No Suicidal Intention: No Homicidal Ideation: No Homicidal Plan: No Homicidal Intention: No Insight: Fair Judgment: Impulsive Assessment and Plan - Assessment (1) Schizoaffective disorder, bipolar type Code(s): F25.0 - Schizoaffective disorder, bipolar type Status: Acute (2) Cocaine use disorder, severe, dependence Code(s): F14.20 - Cocaine dependence, uncomplicated Status: Acute - Plan Plan: Consolidate Seroquel to 400 mg at bedtime. Continue carbamazepine as ordered. Plan to obtain carbamazepine level after appropriate interval. Continue other medications and care as ordered. Justification for Continued Inpatient Stay: Medication changes. Discharge Planning: Possible discharge tomorrow. Case discussed with counselor. Counselor offered patient placement in [place], but patient reportedly declined. Request Healthcare Surrogate/Guardian Advocate?: No
[2018-01-06] MEDS: Acetaminophen 325 MG Tablet PO PRN (13:00)
[2018-01-07 05:59] VITALS: BP 104/64; PULSE 71; TEMP 97.3; O2SAT 100
[2018-01-07] MEDS: Acetaminophen 325 MG Tablet PO PRN (06:31)
[2018-01-07] MEDS: Folic Acid 1 MG Tablet PO SCH (08:25)
[2018-01-07] MEDS: carBAMazepine 200 MG Tablet PO SCH (08:25)
[2018-01-07] MEDS: Multivitamin/Minerals Therapeutic Tablet PO SCH (08:26)
[2018-01-07] MEDS: Senna/Docusate Sodium 8.6/50 MG Tablet PO SCH (08:26)
--- NOTE | 2018-01-07 10:22 | P.DSPSY ---
Psychiatry Discharge Summary Inpatient Psychiatric care?: Yes Advance Directives: No Mental Health Advance Directive: No Health Care Proxy: No - Admission Admission Date: January 03, 2018 10:23 - Admission Diagnosis (1) Schizoaffective disorder, bipolar type Code(s): F25.0 - Schizoaffective disorder, bipolar type Brief History: The patient is a 47-year-old -Mexican man, domiciled in [facility], single , unemployed, supported by [facility], with a psychiatric history of schizoaffective disorder, cocaine and alcohol use disorder, multiple psychiatric hospitalizations, the last hospitalization was about 3 months ago here in [place], history of suicidal attempts by OD, self-cutting behavior, is currently in Seroquel 400 mg, carbamazepine 200 mg twice daily, Artane 5 mg, outpatient care in [facility], medical history of asthma, who presents voluntarily requesting psychiatric evaluation. The patient reports that he came because he needs to restart his psychotropics, he lost his appointment in [facility] about a month ago and since then he has not been taking his medications, he has been using cocaine and alcohol quite often and he has not been feeling stable in the last days. He reports that for 4 weeks he has been having passive suicidal thoughts, auditory hallucinations of voices telling him to kill himself. However, in the last week, these voices has been increasing in intensity and frequency. The patient says that for this reason he has been feeling very depressed, and having suicidal thoughts. The patient is fully oriented x3, he is logical, coherent and relevant. The patient does not seem to be intoxicated , he denies symptoms of withdrawal at the moment PPHx: schizoaffective disorder, cocaine and alcohol use disorder, multiple psychiatric hospitalizations, the last hospitalization was about 3 months ago here in [place], history of suicidal attempts by OD, self-cutting behavior. The patient is on Seroquel 400 mg, carbamazepine 200 mg twice daily, Artane 5 mg PMHx: Asthma, hypercholesterolemia Family Hx: Brother with bipolar disorder Substance Hx: Almost daily use of alcohol and cocaine Social Hx: Patient was born and raised in [facility], he lives with a friend in [facility], single, unemployed, supported by [facility] Tobacco Use In Past 30 Days: Yes How Often Do You Have a Drink Containing Alcohol: 2 to 3 times a week Hospital Course: Patient was admitted to a locked, inpatient psychiatric unit. Appropriate precautions were in place throughout patient's hospital stay. Patient was seen and examined on the unit by psychiatry and also visited by counselor. Psychotropic medications were adjusted. There was no evidence of any suicidality or homicidality on the inpatient unit. There was no evidence of self-care deficit. Counselor offered patient assisted living placement, but he declined. On the day of discharge: Patient seen and examined with counselor. Chart reviewed. Case discussed with nursing staff. No behavioral issues noted overnight. Case discussed in treatment team. On my examination today, the patient is requesting discharge from the inpatient psychiatric unit today. He denies any suicidal or homicidal ideation, intent or plan. I can elicit no depressive or hypomanic/manic symptoms. He denies any audiovisual hallucinations. He denies any command auditory hallucinations to hurt himself or others. I can elicit no delusional material. He denies any side effects from medications. He requests to be transitioned to Seroquel XR formulation on discharge, which I have ordered. He has no physical complaints. Suicide and violence risk assessment on day of discharge both suggest lower imminent risk from mental illness. He has no acute risk factors: No suicidal ideation, no depressive symptoms, no impairment in reality construction, no current substance intoxication. Patient has maximized benefit from this inpatient psychiatric hospital stay. He will be discharged today with psychiatric follow-up as arranged by counselor. Patient is also to follow up with primary care. I have educated the patient regarding need to obtain Tegretol level on outpatient basis. I have counseled the patient to abstain from substances of abuse. I have counseled the patient regarding warning signs for need to return to psychiatric emergency room as part of a general safety plan. - Discharge Discharge Date: 01/07/18 - Discharge Diagnosis (1) Schizoaffective disorder, bipolar type Diagnosis: Principal (Stabilized) Code(s): F25.0 - Schizoaffective disorder, bipolar type Status: Acute (2) Polysubstance abuse Diagnosis: Secondary (Counseled to quit) Code(s): F19.10 - Other psychoactive substance abuse, uncomplicated Status: Chronic Discharge Disposition: Home - Discharge Instructions Discharge Diet: Regular Diet Activities You Can Perform: Weight Bearing As Tolerat - Discharge Time <= 30 minutes Mental Status Examination Appearance: Appropriate Consciousness: Alert Orientation: x4 Motor Activity: Other (No motoric abnormalities noted) Speech: Unremarkable Language: Adequate Fund of Knowledge: Adequate Attention and Concentration: Adequate Memory: Unremarkable (Grossly intact on clinical exam) Mood: Appropriate Affect: Appropriate Thought Process & Associations: Intact, Logical, Goal directed, Linear Thought Content: Appropriate Hallucination Type: None Delusion Type: None Suicidal Ideation: No Suicidal Plan: No Suicidal Intention: No Homicidal Ideation: No Homicidal Plan: No Homicidal Intention: No Mental Status Exam Remarks: Insight and judgment are perhaps fair. Discharge/Advance Care Plan - Results Vital Signs: Last Vital Signs Temp 97.3 F L 01/07/18 05:59 Pulse 71 01/07/18 05:59 Resp 16 01/07/18 05:59 BP 104/64 01/07/18 05:59 Pulse Ox 100 01/07/18 05:59 Lab Results: Abnormal Lab Results 01/06/18 15:45 POC Glucose 81 Laboratory Results Hemoglobin A1c 5.0 % (4.3-6.0) 01/04/18 05:50 Triglycerides 267 mg/dL (42-150) H 01/04/18 05:50 Cholesterol 126 mg/dL (120-200) 01/04/18 05:50 LDL Cholesterol, Calc 41 mg/dL (0-99) 01/04/18 05:50 HDL Cholesterol 31.7 mg/dL (40.0-60.0) L 01/04/18 05:50 TSH 0.802 uIU/mL (0.358-3.740) 01/02/18 03:25 Summary of Procedures: None done Pending Results: None - Medications Number of antipsychotic medications at discharge: 1 - Discharge Care Plan Goals to Promote Your Health: * To prevent worsening of your condition and complications * To maintain your health at the optimal level Directions to Meet Your Goals: Take your medications as prescribed Follow your dietary instruction Follow activity as directed Keep your appointments as scheduled Take your immunizations and boosters as scheduled If your symptoms worsen call your PCP, if no PCP go to Urgent Care Center or Emergency Room For / questions related to your inpatient stay or results of tests pending at discharge, please contact Dr. Stephan Dewitt MD at Smoking is Dangerous to Your Health. Avoid second hand smoking
== END 2018-01-07 11:30 | disposition home or self-care (01) ==
LOC: NEPD 02:35 → NEDA 01-03 10:23 → H260 01-03 12:32
PROVIDERS: ADMIT Psychiatry & Neurology Psychiatry; ATTEND Psychiatry & Neurology Psychiatry